=== PATIENT | female | born 1965 | race Caucasian/White ===

== ENCOUNTER → 2020-06-13 17:41 | Outpatient (CLI) | payer OTHER, SELFPAY ==
--- NOTE | ~2020-06-13 | DEXA_ITS ---
Bone Density Report Name: Christi Mckinnon Age: 54 Sex: Female Ethnicity: White Date of : 1965 Indication: monitoring treatment; cancer; postmenopausal Referring Provider: MIRIAM, CRISTINE Study: Bone densitometry was performed. Exam Date: June 13, 2020 Accession number: [id number] Bone Density: Region BMD T-score Z-score Classification AP Spine (L1-L4) 1.420 3.4 4.6 Normal Femoral Neck (Left) 1.018 1.5 2.7 Normal Total Hip (Left) 1.275 2.7 3.5 Normal Femoral Neck (Right) 0.936 0.8 1.9 Normal Total Hip (Right) 1.154 1.7 2.5 Normal Total Hip Mean 1.215 2.2 3.0 Normal World Health Organization criteria for BMD impression classify patients as: Normal (T-score at or above -1.0), Osteopenia (T-score between -1.0 and -2.5), or Osteoporosis (T-score at or below -2.5). 10-year Fracture Risk: FRAX not reported because: All T-scores for Spine Total, Hip Total, Femoral Neck at or above -1.0 Treated for osteoporosis Previous Exams: Region Exam Age BMD T-score BMD Change BMD Change Date g/cm2 vs Baseline vs Previous AP Spine(L1-L4) 06/13/2020 54 1.420 3.4 0.144* 0.144* 02/08/2016 50 1.276 2.1 Total Hip(Left) 06/13/2020 54 1.275 2.7 0.047* 0.047* 02/08/2016 50 1.228 2.3 Total Hip(Right) 06/13/2020 54 1.154 1.7 0.004 0.004 02/08/2016 50 1.149 1.7 *Denotes significance at 95% confidence level, LSC for AP Spine = 0.022 g/cm2, LSC for Total Hip = 0.027 g/cm2 Clinical Information Provided by Patient: Is being treated for osteoporosis Has used the following medications: Vitamin D, Calcium, MTV, TAMOXIFEN Has the following medical conditions: Cancer Patient maximum height was 70.0 Menopause Age: 49 Drinks caffeinated beverages Onset of menses at age 12 Number of children 2 Impression: The patient has normal bone mass. No significant bone loss was observed. Discussion: PATIENT UNDER TREATMENT WITH NO SIGNIFICANT BMD LOSS SINCE LAST EXAM. In an untreated patient, BMD typically declines with age. A lack of decline or gain is usually a sign that treatment is efficacious and fracture risk is reduced. It is important to ask patients whether they are taking their medications and to encourage continued and appropriate compliance with their osteoporosis therapies to reduce fracture risk. It is also important to review their risk factors and encourage appropriate calci
== END ==
PROVIDERS: Visit Provider Nurse Practitioner
DX: Z78.0 Asymptomatic menopausal state (principal)
CPT/HCPCS: 77080

== ENCOUNTER 2023-02-07 09:10 | Outpatient (CLI) | payer OTHER, SELFPAY ==
[2023-02-07 09:43] LABS: Anion Gap 7 mmol/L (8-16); Blood Urea Nitrogen 18 mg/dL (7-17); Calcium 8.8 mg/dL (8.4-10.2); Carbon Dioxide 27 mmol/L (22-30); Chloride 107 mmol/L (98-107); Estimated Glomerular Filt Rate 57; Glucose 120 mg/dL (65-110); Potassium 4.6 mmol/L (3.4-5.0); Sodium 141 mmol/L (137-145)
== END 2023-02-07 09:11 | disposition home or self-care (01) ==
PROVIDERS: Anesthesiology; PCP Family Medicine; Visit Provider Obstetrics & Gynecology Gynecology
DX: E11.9 Type 2 diabetes mellitus without complications (principal); Z01.818 Encounter for other preprocedural examination
CPT/HCPCS: 36415; 80048

== ENCOUNTER 2023-02-11 01:27 | Day surgery (SDC) | payer OTHER, SELFPAY ==
[2023-02-06 15:06] VITALS: BMI 41.0
--- NOTE | 2023-02-06 15:12 | PC.NURSE ---
Report to the Outpatient Waiting Room, entrance under the green pavilion located off [facility], at time 6:00 on date 02/11/23. Planned Procedure Time: 7:30. Time changes happen often and if your time is changed the preop area will call you the afternoon before. - You and your visitor will be asked to self-screen and do not enter if you have any COVID symptoms. - A mask is optional within the hospital at this time. Patients may have clear liquids (water, carbonated beverages, clear teas, apple juice) until 3 hours prior to surgery (4:30) with a maximum of 20 ounces. - No food from midnight until time of surgery Take the following medications with a SIP of water the morning of surgery: CITALOPRAM DO NOT STOP ANY OF YOUR OTHER PRESCRIPTION MEDICATIONS PRIOR TO SURGERY ?EXCEPT THE FOLLOWING Medications to discontinue per physician: VITAMINS Date to take last dose: 02/07/23 Please no make-up, nail amharic, hairspray, perfume, deodorant, or body powder the day of surgery. No jewelry (including any body piercings) or valuables the day of surgery, leave them at home. Please take a shower or bath the night before, or the morning of, surgery with an antibacterial soap. Wear comfortable, loose fitting clothing. - Jewelry must be removed prior to entering the operating room. Rings and piercings that are not removed may be cut off. - The hospital will not accept responsibility for valuables. - Please leave all valuables, including medications, at home the day of surgery. If you are going home after surgery, a licensed furniture mover driver must drive you home. - NO public transportation without another adult if you receive anesthesia. - We recommend that an adult stay with you for 24 hours following discharge. - We also recommend that you do not drive, make important decision, drink alcoholic beverages, or take any drugs that were not prescribed by your health care provider for at least 24 hours after your discharge time. Follow any additional instructions given to you from your surgeon. If you or anyone in your household have experienced Covid symptoms in the past week, please notify your surgeon or the nurse liaison at the phone number below for possible testing. Telephone instructions given to PT - ROSASNA THOMAS and asked if any additional questions and then verbalized understanding. Patient advised to call surgeon office or pre surgery nurse liaison [phone] if any additional questions.
[2023-02-11 06:26] VITALS: BP 145/80; PULSE 64; RESP 18; TEMP 36.8; O2SAT 97
--- NOTE | 2023-02-11 06:39 | WPDANESEPPF ---
Anes - Initial Pre Proc Eval Procedure: Operation Date: 02/11/23 07:30 Proposed Procedures p Hysteroscopy Dilation and Curettage - Jada Churchill MD Date/Time: 02/11/23 06:39 Surgeon: Jada Churchill MD Pre Op Diagnosis: post menopausal bleeding Patient Data Age: 57 Gender: F Height: 1.78 m Weight: 131.4 kg Last Vital Signs Temp 36.8 C 02/11/23 06:26 Pulse 64 02/11/23 06:26 Resp 18 02/11/23 06:26 BP 145/80 H 02/11/23 06:26 Pulse Ox 97 02/11/23 06:26 O2 Del Method Room Air 02/11/23 06:26 Allergies Allergy/AdvReac Type Severity Reaction Status Date / Time No Known Allergies Allergy Mild Unverified 02/06/23 15:04 Home Medications Medication Instructions Recorded Confirmed Type ramipril 10 mg capsule See Rx Instructions .Route 07/20/19 02/06/23 Rx .COMPLEX #90 caps citalopram 20 mg tablet 10 mg PO DAILY 02/06/23 02/06/23 History metformin 500 mg tablet,extended 1,000 mg PO DAILY 02/06/23 02/06/23 History release 24 hr multivitamin 1 tablet PO DAILY 02/06/23 02/06/23 History tamoxifen 10 mg tablet 30 mg PO DAILY 02/06/23 02/06/23 History Patient hx anesthesia problems: none Family hx anesthesia problems: none Results Review: All pre-operative results and documents have been reviewed as part of the pre-operative evaluation. [facility] Past Medical History Medical History (Updated 02/11/23 @ 06:39 by Xavier Pack MD) Diabetes HTN (hypertension) Morbid obesity Surgical History Surgical History (Updated 02/11/23 @ 06:40 by Xavier Pack MD) H/O colonoscopy History of appendectomy Family History Family History (Updated 01/12/16 @ 08:09 by DOCTOR UNKNOWN) Father Family history of multiple sclerosis Mother Hypertension Grandparent Malignant neoplasm of prostate Family history of coronary artery disease Other Family history of malignant neoplasm Social History Social History Smoking status: Never smoker Alcohol intake: current Drinks per week: 2 Substance use: never Substance use type: does not use Living arrangements: with family Spiritual care concerns: No Anes - Eval Final PreProcedure Day of Procedure 02/11/23 06:39 Patient weight: morbidly obese Heart: regular rate and rhythm Lungs: clear to auscultation Airway: Mallampati scale class II Neurological: alert and oriented Last oral intake: >/= 8 hours ASA classification: III Emergent: no Anesthetic plan: proceed Anesthesia type and monitoring: general GIVS and standard monitoring Results Review: All pre-operative results and documents have been reviewed as part of the pre-operative evaluation. Informed Consent: The patient's anesthetic plan and its attendant risks and benefits were discussed with the patient/family/POA. Questions were solicited and answers provided to the satisfaction of the patient/family/POA.
[2023-02-11] MEDS: LACTATED RINGERS 1,000 ML 30 ML IV CONT (06:47)
[2023-02-11] MEDS: ACETAMINOPHEN 500 MG TABLET 1000 MG PO (06:47)
[2023-02-11 06:49] LABS: Glucose Point of Care 138 mg/dl (65-105)
--- NOTE | 2023-02-11 07:23 | WPDHPUPDATE1 ---
History and Physical Update Update Date/Time: 02/11/23 07:23 History and Physical has been reviewed, including an updated exam of the patient. There are NO changes in the patient's condition. Risks, benefits, and alternatives have been discussed and questions answered. Patient agrees to proceed with procedure.
--- NOTE | 2023-02-11 07:23 | PM.HPGS ---
History of Present Illness History of Present Illness Consent: Risks, benefits, and alternatives have been discussed and questions answered. Patient agrees to proceed with procedure. Chief complaint: post menopausal bleeding Narrative: Christi Mckinnon is a 57 year old female Who presented for her well-woman exam January 23, 2023 with no complaints. Pap smear however showed endometrial cells present. Patient is on tamoxifen and therefore she presents for D&C hysteroscopy to further evaluate. Risks of infection, bleeding, and perforation are reviewed. Possible pathology was also discussed especially being on tamoxifen. Patient voices understanding and agrees to proceed. 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 Family History Family History (Updated 01/12/16 @ 08:09 by DOCTOR UNKNOWN) Father Family history of multiple sclerosis Mother Hypertension Grandparent Malignant neoplasm of prostate Family history of coronary artery disease Other Family history of malignant neoplasm Social History Social History Smoking status: Never smoker Alcohol intake: current Drinks per week: 2 Substance use: never Substance use type: does not use Living arrangements: with family Spiritual care concerns: No Meds Home Medications and Allergies Home Medications Medication Instructions Recorded Confirmed Type ramipril 10 mg capsule See Rx Instructions .Route 07/20/19 02/11/23 Rx .COMPLEX #90 caps citalopram 20 mg tablet 10 mg PO DAILY 02/06/23 02/11/23 History metformin 500 mg tablet,extended 1,000 mg PO DAILY 02/06/23 02/11/23 History release 24 hr multivitamin 1 tablet PO DAILY 02/06/23 02/11/23 History tamoxifen 10 mg tablet 30 mg PO DAILY 02/06/23 02/11/23 History Allergies Allergy/AdvReac Type Severity Reaction Status Date / Time No Known Allergies Allergy Mild Unverified 02/11/23 07:13 Vital Signs Vital Signs - 24 hr 02/11/23 06:26 Temperature 98.2 F Pulse Rate 64 Respiratory Rate 18 Blood Pressure 145/80 H Pulse Oximetry 97 Oxygen Delivery Room Air Exam Const: General: healthy appearing and alert Orientation/consciousness: patient oriented x3 Resp: Effort & Inspection: normal respiratory effort Auscultation: clear to auscultation bilaterally Cardio: Rate: regular rate Rhythm: regular rhythm GI: GI Palp: Yes Soft to palpation, No Tenderness to palpation present (GI) and No Palpable mass present : External Female Exam: normal external appearance Speculum Exam - Vagina: normal appearance of the vagina and normal vaginal discharge Speculum Exam - Cervix: normal appearance of the cervix Bimanual exam- vagina & uterus: uterine size normal and consistency normal Bimanual Exam- Adnexa, other: normal adnexae and No adnexal tenderness Neuro: General: patient oriented x3 Assessment and Plan Assessment and plan (1) Unexplained endometrial cells on cervical Pap smear: Code(s): R87.618 - Other abnormal cytological findings on specimens from cervix uteri Status: Acute Assessment and Plan: The patient is postmenopausal and on tamoxifen therefore we will proceed with D&C hysteroscopy to further evaluate.
--- NOTE | 2023-02-11 07:51 | P.OP_ITS ---
Procedure Note - Detailed Date of Procedure 02/11/23 Pre-op Diagnosis microscopic post menopausal bleeding; endometrial cells on Pap smear Post-op Diagnosis Same Procedure Performed D&C hysteroscopy Surgeon Jada Churchill MD Anesthesia MAC Findings very anterior cavity; atrophic endometrium Description of Procedure The patient is taken to the operating room and placed under anesthesia in the dorsal lithotomy position. She was prepped and draped in the usual sterile fashion. [place] speculum was placed in the vagina and cervix grasped on the anterior lip with a tenaculum. The uterus was attempted to be sounded but internal stenosis is noted. The os Finders were used and the internal os able to be passed. The uterus is then sounded to 8cm. The diagnostic hysteroscope was placed and the cavity is noted to be very anterior. The speculum had to be rotated to allow the hysteroscope to be placed very posteriorly aiming for the very anterior endometrial cavity. No abnormalities were visualized and the hysteroscope was removed. The 00 sharp curette was placed through the same pathway and the endometrium sharply curetted until a good uterine cry was noted in all areas. All instruments are removed. Sponge, needle, and instrument c ounts are correct per the OR staff. Estimated Blood Loss 5 Drains No Packing No Pathology Yes ( Endometrial curettings) Complications No immediate complications Condition Stable Disposition PACU
[2023-02-11 07:57] VITALS: BP 107/62; PULSE 52; RESP 12; O2SAT 96
[2023-02-11 08:12] LABS: Glucose Point of Care 133 mg/dl (65-105)
[2023-02-11 08:25] VITALS: BP 131/75; PULSE 43; RESP 14; O2SAT 98
[2023-02-11 08:50] VITALS: BP 113/60; PULSE 52; RESP 14
== END 2023-02-11 08:58 | disposition home or self-care (01) ==
PROVIDERS: PCP Family Medicine; Visit Provider Obstetrics & Gynecology Gynecology
PROC: 0U5B8ZZ Destruction of Endometrium, Via Natural or Artificial Opening Endoscopic (ICD-10-PCS; CPT 58563; principal; 2023-02-11 07:30)
DX: N95.0 Postmenopausal bleeding (principal); E11.9 Type 2 diabetes mellitus without complications; I10 Essential (primary) hypertension; E66.9 Obesity, unspecified; Z68.41 Body mass index [BMI] 40.0-44.9, adult; Z90.11 Acquired absence of right breast and nipple; Z79.84 Long term (current) use of oral hypoglycemic drugs; Z79.810 Long term (current) use of selective estrogen receptor modulators (SERMs); Z85.3 Personal history of malignant neoplasm of breast; Z82.49 Family history of ischemic heart disease and other diseases of the circulatory system; Z80.42 Family history of malignant neoplasm of prostate
CPT/HCPCS: 58558; 36415; 80048; 82948; 88305; A9270; J2250; J2405; J2704; J3010; J7120

== ENCOUNTER 2024-03-20 08:18 | Emergency (ER) | payer OTHER, SELFPAY ==
--- NOTE | ~2024-03-20 | XR_ITS ---
EXAMINATION: XR chest 2V DATE: 03/20/2024 08:55 INDICATION: Shortness of breath. TECHNIQUE: Frontal and lateral views of the chest were obtained. COMPARISON: Chest single view 09/23/2005 FINDINGS: There is no pneumonia, pleural effusion, or pneumothorax. The heart size is normal. There a re prominent pericardial fat pads. IMPRESSION: 1. No acute cardiopulmonary disease. Reviewed, dictated and finalized at location A. BOARD SUPERVISOR
[2024-03-20 08:34] VITALS: BP 124/69; PULSE 89; RESP 16; TEMP 37.5; O2SAT 98
--- NOTE | 2024-03-20 08:37 | ED.GENADULT ---
HPI - General Adult General Chief complaint: Upper Respiratory Infection Stated complaint: dizziness, nausea, sob Time Seen by Provider: 03/20/24 08:37 Source: patient Mode of arrival: ambulatory Limitations: no limitations History of Present Illness HPI narrative: 58 yo F presents with c/o intermittent dizziness, fatigue, nausea, vomiting since yesterday. Vomited once last night. Was able to keep down crackers and medications this AM. Hx of breast CA. Currently getting radiation treatments. After radiation tx yesterday pt felt dizzy and nauseated. Was told side effect of radiation. Today feels fatigued. Has a very slight cough and gets SOB with talking to much . Called oncology office and was told could be due to radiation but to be seen, could be getting sick. Pt dizzy when sitting up. States tired and just want to lay my head down . Alert and oriented. Has not taken any medication to treat symptoms. Pt's drove her today. No CP or palpitations. All systems reviewed and negative except as noted above. Related Data Home Medications ?Medication ?Instructions ?Recorded ?Confirmed ?Last Taken ?Type citalopram 20 mg tablet 10 mg PO DAILY 02/06/23 02/11/23 Unknown History metformin 500 mg tablet,extended 1,000 mg PO DAILY 02/06/23 02/11/23 Unknown History release 24 hr multivitamin 1 tablet PO DAILY 02/06/23 02/11/23 Unknown History tamoxifen 10 mg tablet 30 mg PO DAILY 02/06/23 02/11/23 Unknown History Allergies Allergy/AdvReac Type Severity Reaction Status Date / Time No Known Allergies Allergy Mild Verified 03/20/24 08:26 Review of Systems Review of Systems: CONSTITUTIONAL: Denies fever, chills, or sweats. Reports fatigue. EYES: Denies visual changes, redness, or discharge. ENT: Denies rhinorrhea, congestion, sore throat, or otalgia. CARDIOVASCULAR: Denies chest pain, palpitations, or edema. RESPIRATORY: Reports cough and dyspnea with talking. GASTROINTESTINAL: Denies abdominal pain. Reports nausea, vomiting. Denies diarrhea. GENITOURINARY: Denies dysuria or hematuria. SKIN: Denies rash or itching. MUSCULOSKELETAL: Denies back pain, joint pain, or myalgia. NEUROLOGIC: Denies headache, numbness, or weakness. PSYCHIATRIC: Denies anxiety or depression. All other systems reviewed are negative, except as documented in HPI. 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 History of appendectomy H/O colonoscopy Family History Family History (Updated 01/12/16 @ 08:09 by DOCTOR UNKNOWN) Father Family history of multiple sclerosis Mother Hypertension Grandparent Malignant neoplasm of prostate Family history of coronary artery disease Other Family history of malignant neoplasm Social History Social History Smoking status: Never smoker Alcohol intake: current Drinks per week: 2 Substance use: never Substance use type: does not use Living arrangements: with family Spiritual care concerns: No Comments At time of signature, agree with nursing past medical, surgical, social and family history. There is no relevant family history pertinent to the presenting complaint. Exam Narrative: GENERAL: This is a well-nourished, well-developed patient, in no apparent distress. HEAD: normocephalic, atraumatic. EYES: PERRL. Sclera clear/white. Vision is grossly intact. extraocular motions intact EARS: External ears normal, auditory canals clear and without drainage, TMs normal without perforation. Hearing grossly intact. NOSE: External nose normal with no obvious nasal discharge, nares without redness, no rhinorrhea. THROAT: Mucous membranes moist, posterior pharynx clear. NECK: Neck supple, non-tender without lymphadenopathy, masses or thyromegaly. CARDIOVASCULAR: Regular rate and rhythm without murmurs, gallops, or rubs. RESPIRATORY: Clear to auscultation. Breath sounds equal bilaterally. No wheezes, rales, or rhonchi. GASTROINTESTINAL: Abdomen soft, non-tender, nondistended. Bowel sounds are active. No hepato-splenomegaly, or palpable masses. No guarding. SKIN: warm, Dry, intact with no suspicious lesions or rash, good texture and turgor. NEURO: awake, alert, and oriented to person, place and time. There were no obvious focal neurologic abnormalities. EXTREMITIES: No joint tenderness, effusion, or edema noted. Course Course Level of Care: Express Care Visit Vital Signs Vital signs: Vital Signs Temperature 37.5 C 03/20/24 08:34 Pulse Rate 89 03/20/24 08:34 Respiratory Rate 16 03/20/24 08:34 Blood Pressure 124/69 03/20/24 08:34 Pulse Oximetry 98 03/20/24 08:34 Oxygen Delivery Room Air 03/20/24 08:34 Temperature 37.5 C 03/20/24 08:34 Pulse Rate 89 03/20/24 08:34 Respiratory Rate 16 03/20/24 08:34 Blood Pressure 124/69 03/20/24 08:34 Pulse Oximetry 98 03/20/24 08:34 Oxygen Delivery Room Air 03/20/24 08:34 reviewed Medical Decision Making MDM Narrative Medical decision making narrative: EKG NSR, HR 82, no ischemic changes. neg covid and influenza. chest x-ray normal. EKG NSR. Pt spoke with her oncology team and was told symptoms most likely from radiation but to be seen in case something else going on. Did offer to transfer pt to ER for labs. She did not feel was necessary. Here with her and wants to go home and rest. Will call her oncologist with update and will go to the ER for any worsening of symptoms. Patient is aware of diagnosis, understands and agrees to treatment plan. Anticipatory guidance given. Patient agrees to follow-up as directed and is aware of reasons to seek care at the emergency department. Portions of this record may have been created with voice recognition software Differential Diagnosis Differential Diagnosis: radiation side effects, influenza, COVID Vital Signs Vital Signs: Vital Signs Temperature 37.5 C 03/20/24 08:34 Pulse Rate 89 03/20/24 08:34 Respiratory Rate 16 03/20/24 08:34 Blood Pressure 124/69 03/20/24 08:34 Pulse Oximetry 98 03/20/24 08:34 Oxygen Delivery Room Air 03/20/24 08:34 Temperature 37.5 C 03/20/24 08:34 Pulse Rate 89 03/20/24 08:34 Respiratory Rate 16 03/20/24 08:34 Blood Pressure 124/69 03/20/24 08:34 Pulse Oximetry 98 03/20/24 08:34 Oxygen Delivery Room Air 03/20/24 08:34 Lab Data Labs: Lab Results 03/20/24 Range/Units 08:55 POC Influenza A Ag Negative (Negative) POC Influenza B Ag Negative (Negative) POC SARS CoV-2 Ag Negative (Negative) Imaging Data Radiologist's impression: EXAMINATION: XR chest 2V DATE: 03/20/2024 08:55 INDICATION: Shortness of breath. TECHNIQUE: Frontal and lateral views of the chest were obtained. COMPARISON: Chest single view 09/23/2005 FINDINGS: There is no pneumonia, pleural effusion, or pneumothorax. The heart size is normal. There are prominent pericardial fat pads. IMPRESSION: 1. No acute cardiopulmonary disease. Discharge Plan Discharge Clinical Impression: Acute viral syndrome Adverse effect of radiation Qualifiers: Encounter type: initial encounter Qualified Code(s): T66.XXXA - Radiation sickness, unspecified, initial encounter Patient Disposition: Home, Self-Care Condition: Stable Additional Instructions: You were negative for covid and influenza. Your chest x-ray was normal. Your EKG was normal. Take medications as prescribed. Drink at least 64 ounces of water a day. For any worsening of symptoms go to the ER. Patient Language: Upper Sorbian Prescriptions: New meclizine 25 mg tablet 25 mg PO Q6-8H PRN (Reason: dizziness) Qty: 30 0RF ondansetron 4 mg tablet,disintegrating 4 mg PO Q8H PRN (Reason: nausea and vomiting) Qty: 12 0RF No Action multivitamin Tablet 1 tablet PO DAILY tamoxifen 10 mg tablet 30 mg PO DAILY metformin 500 mg tablet extended release 24 hr 1,000 mg PO DAILY citalopram 20 mg tablet 10 mg PO DAILY ramipril 10 mg capsule See Rx Instructions .ROUTE .COMPLEX Qty: 90 0RF Dose Instruction: TAKE 1 CAPSULE BY MOUTH EVERY DAY Rx Instructions: TAKE 1 CAPSULE BY MOUTH EVERY DAY Follow-up/Referrals: Willy,Virgilio Trinh MD [Primary Care Provider] - Time of Disposition: 09:05
[2024-03-20 08:57] LABS: EDCOVIDSCREEN Negative (Negative); EDINFLUASCREEN Negative (Negative); EDINFLUBSCREEN Negative (Negative)
--- NOTE | 2024-03-20 09:07 | ECG_ITS ---
Test Date: 2024-03-20 09:13:06 Measurements Intervals [place] Rate: 82 P: 31 VT: 141 QRS: -15 QRSD: 96 T: 8 QT: 351 QTc: 410 Interpretive Statements SINUS RHYTHM NORMAL ECG No previous ECG available for comparison Electronically Signed On 03-21-2024 10:25:00 GARMENT PARTS CUTTER MACHINE by Angelo Hawk M.D.
== END 2024-03-20 09:13 | disposition home or self-care (01) ==
PROVIDERS: Emergency Provider Nurse Practitioner Family; PCP Family Medicine
DX: B34.9 Viral infection, unspecified (principal); T66.XXXA Radiation sickness, unspecified, initial encounter; C50.919 Malignant neoplasm of unspecified site of unspecified female breast; E11.9 Type 2 diabetes mellitus without complications; I10 Essential (primary) hypertension; Z20.822 Contact with and (suspected) exposure to COVID-19
CPT/HCPCS: 71046; 87426; 87804; 93005; 99213; G0463

== ENCOUNTER 2024-04-29 13:47 | Outpatient (CLI) | payer OTHER, SELFPAY ==
--- NOTE | ~2024-04-29 | DEXA_ITS ---
Bone Density Report Name: ROSSANA THOMAS Age: 58 Sex: Female Ethnicity: White Date of : 1965 Indication: postmenopausal; screening for osteoporosis; height loss; Referring Provider: TAB, ELLI Trinh Study: Bone densitometry was performed. Exam Date: April 29, 2024 Accession number: [id number] Bone Density: Region BMD T-score Z-score Classification AP Spine(L1-L4) 1.365 2.9 4.4 Normal Femoral Neck (Left) 1.082 2.1 3.4 Normal Total Hip (Left) 1.313 3.0 4.0 Normal Femoral Neck (Right) 1.003 1.4 2.7 Normal Total Hip (Right) 1.205 2.2 3.1 Normal Total Hip Mean 1.259 2.6 3.6 Normal World Health Organization criteria for BMD impression classify patients as: Normal (T-score at or above -1.0), Osteopenia (T-score between -1.0 and -2.5), or Osteoporosis (T-score at or below -2.5). 10-year Fracture Risk: FRAX not reported because: All T-scores for Spine Total, Hip Total, Femoral Neck at or above -1.0 Clinical Information Provided by Patient: Has used the following medications: Vitamin D, Calcium Patient maximum height was 72.0 Menopause Age: 48 Onset of menses at age 11 Number of children 2 Impression: The patient has normal bone mass. Discussion: LOW RISK OF FRACTURE; BONE DENSITY IS WELL ABOVE THE MINIMUM DESIRABLE LEVEL AND ABOVE AVERAGE FOR AGE AND SEX AT ALL SKELETAL SITES TESTED. This person's bone density is above expected limits for age and sex. This is rarely clinically significant, but should be pursued if there are significant musculoskeletal complaints. The patient should follow a healthful lifestyle (good nutrition with adequate calcium and vitamin D, and appropriate weight-bearing exercise). Follow-Up: Consider repeating this study in 5 years or sooner if there is some new clinical indication. Reported by: MARITA on 04/29/2024 2:32:00 PM. Reviewed, dictated and finalized at location AMarisa DIAZ
--- OUTSIDE RECORDS SUMMARY | 2024-04-29 13:51 | XMS_ITS | Clinical Summary ---
Author Organization [facility] Address [address] [place] [id number] Care Team Providers Care Band Splicer Name Role Phone Unavailable Primary Care Provider Unavailabl e Social History Tobacco Use Types Packs/Day Years Used Date Smoking Tobacco: Never Assessed Comments Unknown Sex and Gender Information Value Date Recorded Sex Assigned at Not on file Legal Sex Female 6:13 PM CDT Gender Identity Not on file Sexual Orientation Not on file Plan of Treatment Health Maintenance Due Date Last Done Comments Cervical Cancer Screening Pa p Smear (Age 30 to 64) Every 3 Years 1965 Colorectal Cancer Screening Colonoscopy (10 Years) 1965 Annual Physical 08/12/1966 Hepatitis C 08/12/1981 DTaP, Tdap and Td Vaccines ( 1 - Tdap) 08/12/1982 Cervical Cancer Screening Pa p with HPV Testing (Age 30 to 64) Every 5 Years 08/12/1993 Cervical Cancer Screening with HPV 08/12/1993 Mammogram Screening 2003 Zoster Vaccines (1 of 2) 08/12/2013 COVID-19 Vaccine (2023-2 5 season) 2023 Influenza Adult (#1) 2023 RSV Immunization or 60+ Years (1 - 1-dose 75+ series) 08/12/2038 Meningococcal B Vaccine Aged Out No l onger eligible based on patient's age to complete this topic Meningococcal Vaccine Aged Out No kassy umm eligible based on patient's age to complete this topic Pneumococcal Vaccine: Pediat rics (0 to 5 Years) and At-Risk Patients (6 to 64 Years) Aged Out No longer eligible b ased on patient's age to complete this topic RSV Immunizations Under 20 Months Aged Out No longer eligible based on patient's age to complete this topic
--- OUTSIDE RECORDS SUMMARY | 2024-04-29 13:52 | XMS_ITS | Referral Summary ---
Author Organization [facility] Address [address] [place] [address] Care Team Providers Care Education Site Manager Name Role Phone Virgilio Aguilera MD Primary Care Provider + Chi Lewis DO Unavailable [phone] Teetee Burch RISK CONTROL ANALYST Unavailable +- [phone] Gavino, Larissa De Jesus MD PhD Unavailable [phone] Ene Telles MD Unavailable [phone] Jasmine Aguirre MD PhD Unavailable [phone] Encounters Date Type Department Care Team Description 04/15/[address] [facility] Office Building 2 Radiation Oncology [address] [place] [address] [id number] Ene Telles MD 04/15/2024 Orders Only RAD ONC TREATMENTS Miscellaneous, Not In File 04/15/[address] [facility] Office Building 2 Radiation Oncology [address] [place] [address] [id number] Ene Telles MD Malignant neoplasm of upper-outer quadrant of right breast in female, estrogen receptor positive (HCC) (Primary Dx) 04/15/2024 Orders Only RAD ONC TREATMENTS Miscellaneous, Not In File 04/15/2024 8:00 AM [facility] Office Building 2 Radiation Oncology [address] [place] [address] [id number] Ene Telles MD 04/14/2024 Orders Only RAD ONC TREATMENTS Miscellaneous, Not In File 04/14/2024 8:00 AM [facility] Office Building 2 Radiation Oncology [address] [place] [address] [id number] 04/13/2024 Orders Only RAD ONC TREATMENTS Miscellaneous, Not In File 04/13/2024 8:00 AM [facility] Office Building 2 Radiation Oncology [address] [place] [address] [phone] 04/10/2024 Orders Only RAD ONC TREATMENTS Miscellaneous, Not In File 04/10/2024 8:00 AM [facility] Office Building 2 Radiation Oncology [address] [place] [address] [id number] 04/09/2024 Orders Only RAD ONC TREATMENTS Miscellaneous, Not In File 04/09/2024 8:00 AM [facility] Office Building 2 Radiation Oncology [address] [place] [address] [id number] 04/08/2024 Orders Only RAD ONC TREATMENTS Miscellaneous, Not In File 04/08/2024 8:00 AM [facility] Office Building 2 Radiation Oncology [address] [place] [address] [id number] Fer Napier MD 04/08/2024 8:15 AM [facility] Office Building 2 Radiation Oncology [address] [place] [address] [id number] Ene Telles MD 04/08/2024 2:15 PM [employer] Office Visit [facility] Oncology [address] [place] [phone] Chi Lewis, Malignant neoplasm of upper-outer quadrant of right breast in female, estrogen receptor positive (HCC) (Primary Dx); Vitamin D deficiency; long-term (current) use of aromatase inhibitors 04/07/2024 [facility] Office Building 2 Radiation Oncology [address] [place] [address] [id number] Ene Telles MD Malignant neoplasm of upper-outer quadrant of right breast in female, estrogen receptor positive (HCC) (Primary Dx) 04/07/2024 Orders Only RAD ONC TREATMENTS Miscellaneous, Not In File 04/07/2024 8:30 AM [facility] Office [facility] 2 Radiation Oncology [address] [place] [id number] 04/06/2024 Orders Only RAD ONC TREATMENTS Miscellaneous, Not In File 04/06/2024 8:00 AM [facility] Office [facility] 2 Radiation Oncology [address] [place] [address] [phone] 04/03/2024 Orders Only RAD ONC TREATMENTS Miscellaneous, Not In File 04/03/2024 8:15 AM [facility] Office [facility] 2 Radiation Oncology [address] [place] [id number] Ene Telles MD 04/03/2024 8:00 AM [facility] 2 Radiation Oncology [address] [place] [address] [phone] 04/02/2024 Orders Only RAD ONC TREATMENTS Miscellaneous, Not In File 04/02/2024 8:00 AM [facility] Office [facility] 2 Radiation Oncology [address] [place] [address] [id number] 04/01/2024 2:30 PM [employer] Office Visit [facility] Surgery 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) 04/01/2024 [facility] Office [facility] 2 Radiation Oncology [address] [place] [address] [id number] Ene Telles MD Malignant neoplasm of upper-outer quadrant of right breast in female, estrogen receptor positive (HCC) (Primary Dx) 04/01/2024 Orders Only RAD ONC TREATMENTS Miscellaneous, Not In File 04/01/2024 8:00 AM [facility] Office Building 2 Radiation Oncology [address] [place] [address] [id number] 03/31/2024 Orders Only RAD ONC TREATMENTS Miscellaneous, Not In File 03/31/2024 8:00 AM [facility] Office Building 2 Radiation Oncology [address] [place] [address] [id number] 03/30/2024 Orders Only RAD ONC TREATMENTS Miscellaneous, Not In File 03/30/2024 8:00 AM [facility] Office Building 2 Radiation Oncology [address] [place] [address] [phone] 03/27/2024 Orders Only RAD ONC TREATMENTS Miscellaneous, Not In File 03/27/2024 8:00 AM [facility] Office Building 2 Radiation Oncology [address] [place] [address] [phone] 03/26/2024 Orders Only RAD ONC TREATMENTS Miscellaneous, Not In File 03/26/2024 8:00 AM [facility] Office Building 2 Radiation Oncology [address] [place] [address] [phone] 03/25/2024 Orders Only RAD ONC TREATMENTS Miscellaneous, Not In File 03/25/2024 8:00 AM [facility] Office Building 2 Radiation Oncology [address] [place] [address] [id number] 03/24/2024 3:[address] [facility] Medical Office Building [address] [place] [id number] Shortness of breath 03/24/2024 2:41 PM [employer] - 03/24/2024 11:59 PM [facility] 1 DIAG IMG [address] [place] [address] [id number] Shortness of breath Discharge Disposition: Discharge to home or self care 03/24/2024 2:30 PM [employer] Office Visit [facility] Primary Care [address] [place], [place] [address], [place] [address] Virgilio Aguilera MD Shortness of breath (Primary Dx); Essential hypertension; JACKIE (generalized anxiety disorder); Moderate episode of recurrent major depressive disorder (HCC); Class 3 severe obesity due to excess calories without serious comorbidity with body mass index (BMI) of 40.0 to 44.9 in adult (HCC) 03/24/2024 Nurse Triage [facility] Primary Care [address] [place] [address] [address] [place] [address] Virgilio Aguilera MD 03/24/2024 [facility] Office Building 2 Radiation Oncology [address] [place] [address] [phone] Xavier Corbett MD 03/24/2024 Orders Only RAD ONC TREATMENTS Miscellaneous, Not In File 03/24/2024 8:00 AM [facility] Office Building 2 Radiation Oncology [address] [place] [address] [phone] 03/23/2024 Orders Only RAD ONC TREATMENTS Miscellaneous, Not In File 03/23/2024 8:00 AM [facility] Office Building 2 Radiation Oncology [address] [place] [address] [phone] 03/20/2024 [facility] Office Building 2 Radiation Oncology [address] [place] [address] [phone] Teetee Pathak MA 03/19/2024 Orders Only RAD ONC TREATMENTS Miscellaneous, Not In File 03/19/2024 8:00 AM [facility] Office Building 2 Radiation Oncology [address] [place] [address] [id number] 03/18/2024 [facility] Office Building 2 Radiation Oncology [address] [place] [address] [id number] Ene Telles MD Malignant neoplasm of upper-outer quadrant of right breast in female, estrogen receptor positive (HCC) (Primary Dx) 03/18/2024 Orders Only RAD ONC TREATMENTS Miscellaneous, Not In File 03/18/2024 8:00 AM [employer] Treatment [facility] Office [facility] 2 Radiation Oncology [address] [place] [address] [id number] 03/17/2024 Orders Only RAD ONC TREATMENTS Miscellaneous, Not In File 03/17/2024 10:30 AM [employer] Clinical Support [facility] Office Building 2 Radiation Oncology [address] [place] [address] [id number] Ductal carcinoma in situ (DCIS) of right breast (Primary Dx); Controlled type 2 diabetes mellitus without complication, without long-term current use of insulin (CMS/HCC) (HCC); Class 3 severe obesity due to excess calories without serious comorbidity with body mass index (BMI) of 40.0 to 44.9 in adult (HCC); Malignant neoplasm of upper-outer quadrant of right breast in female, estrogen receptor positive (HCC) 03/17/2024 10:15 AM [employer] Treatment [facility] Office [facility] 2 Radiation Oncology [address] [place] [address] [id number] Ene Telles MD 03/17/2024 10:30 AM [employer] Treatment [facility] Office [facility] 2 Radiation Oncology [address] [place] [address] [id number] Ene Telles MD 03/09/2024 7:30 PM [employer] Treatment [facility] Office [facility] 2 Radiation Oncology [address] [place] [address] [phone] 02/26/2024 2:30 PM [employer] Treatment [facility] Medical Office Building 2 Radiation Oncology [address] [place] [address] [id number] Ene Telles MD 02/26/2024 2:00 PM [employer] Office Visit [facility] Office [facility] 2 Radiation Oncology [address] [place] [address] [id number] Ene Telles MD Malignant neoplasm of upper-outer quadrant of right breast in female, estrogen receptor positive (HCC) (Primary Dx) 01/29/2024 3:00 PM [employer] Office Visit [facility] Surgery [address] [facility] [address] [place] [address] Aft, Larissa De Jesus MD PhD Malignant neoplasm of upper-outer quadrant of right breast in female, estrogen receptor positive (HCC) (Primary Dx) from Last 3 Months Allergies No known active allergies Medications multivitamin capsuleIndication s:Vitamin Deficiency Prevention Take 1 capsule by mouth powerhouse attendant before breakfast Active cyanocobalamin (Vitamin B-12) 100 mcg tabletIndications :Prevention of Vitamin B12 Deficiency Take 1 tablet (100 mcg total) by mouth powerhouse attendant before breakfast Active calcium-vits A0-U-I3-minerals 166.75 mg- 166.75 unit capsuleIndication s:supplement Take 1,200 mg by mouth every morning Active ferrous sulfate 325 mg (65 mg of elemental iron) tabletIndications :Iron Deficiency Anemia Take 1 tablet (325 mg total) by mouth daily with breakfast Active cholecalciferol (VITAMIN D-3) 2000 unit capsuleIndication s:Vitamin D Deficiency Take 1 capsule (2,000 Units total) by mouth every morning Active citalopram (CeleXA) 10 mg tabletIndications :JACKIE (generalized anxiety disorder) TAKE 1 TABLET(10 MG) BY MOUTH DAILY 90 tablet 3 09/10/19 24 Active ramipriL (ALTACE) 10 mg capsuleIndication s:Essential hypertension Take 1 capsule (10 mg total) by mouth daily 100 capsule 02/24/20 24 Active meclizine (ANTIVERT) 25 mg tablet Take 1 tablet (25 mg total) by mouth 3 (three) times a day as needed 03/20/19 25 Active ondansetron ODT (ZOFRAN-ODT) 4 mg disintegrating tablet Take 1 tablet (4 mg total) by mouth every 8 (eight) hours as needed 03/20/19 25 Active albuterol HFA (PROVENTIL HFA,VENTOLIN HFA,PROAIR HFA) 90 mcg/actuation inhalerIndication s:Shortness of breath Inhale 2 puffs every 6 (six) hours as needed for shortness of breath 1 each 4 03/24/19 25 026 Active anastrozole (ARIMIDEX) 1 mg tablet Take 1 tablet (1 mg total) by mouth daily 30 tablet 1 04/08/19 25 026 Active metFORMIN XR (GLUCOPHAGE XR) 500 mg 24 hr tabletIndications :Controlled type 2 diabetes mellitus without complication, without long-term current use of insulin ([facility]) ([facility]) Take 1 tablet (500 mg total) by mouth 2 (two) times a day 180 tablet 1 04/13/19 25 Active metFORMIN XR (GLUCOPHAGE XR) 500 mg 24 hr tabletIndications :Controlled type 2 diabetes mellitus without complication, without long-term current use of insulin ([facility]) ([facility]) TAKE 1 TABLET(500 MG) BY MOUTH DAILY WITH BREAKFAST FOR 7 DAYS THEN TAKE 2 TABLETS(1000 MG) BY MOUTH DAILY WITH BREAKFAST 180 tablet 1 10/16/19 24 025 Discontinued predniSONE (DELTASONE) 20 mg tabletIndications :Shortness of breath Take 3 tabs (60mg) daily for 3 days, then take 2 tabs (40mg) daily for 3 days, then take 1 tab (20mg) daily for 3 days. 18 tablet 03/24/19 25 025 Active Problems Problem Noted Date Diagnosed Date Shortness of breath 03/24/2024 Assessment & Plan (03/24/2024 3:14 PM [employer]): - unclear etiology - cxr, labs - possible viral or bacterial PNA vs other infection vs reactive airway - tx with steroid, albuterol, empiric abx due to high risk 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, estrogen receptor positive 12/24/2023 Cancer Staging:Clinical stage from 12/27/2023:Stage IA(cT1b, cN0, cM0, G2, ER+, AZ-, HER2-) - Signed by Ene Telles MD on 12/27/2023 Pathologic stage from 02/26/2024: rpT1b, pN0 - Unsigned Controlled type 2 diabetes m ellitus without complication, without long-term current use of insulin ([facility]/HCC) 01/09/2023 Assessment & Plan (01/22/2024 9:19 AM [employer]): - stable - continue metformin - discussed benefits of statins with DM, pt not interested at this time due to very low LDL Assessment & Plan (07/24/2023 9:05 AM CDT): - stable - continue metformin Assessment & Plan (01/09/2023 9:22 AM CDT): - stable - continue current medication - f/u in 6 mo History of partial mastectomy of right breast Post-COVID chronic cough 08/25/2021 Assessment & Plan (08/25/2021 10:18 AM CDT): - uncontrolled - may be some underlying COPD/Asthma exacerbated by covid infection - tx with albuterol and advair, medrol dose pack - consider PFTs once feelling better. - f/u in 1 mo if sx not improved or sooner if sx worsen. Annual physical exam 03/24/2021 Assessment & Plan (01/22/2024 9:19 AM [employer]): - Reviewed with the patient BMI, blood pressure, diet, exercise, and encouraged healthy lifestyle choices. - Screened for high risk behaviors, diet and exercise habits, and symptoms of depression. - reviewed screening labs - encouraged regular exercise and weight loss Assessment & Plan (09/10/2022 11:54 AM CDT): - Reviewed with the patient BMI, blood pressure, diet, exercise, and encouraged healthy lifestyle choices. - Screened for high risk behaviors, diet and exercise habits, and symptoms of depression. - check screening labs - encouraged regular exercise and weight loss Assessment & Plan (03/24/2021 7:55 AM [employer]): - Reviewed with the patient BMI, blood pressure, diet, exercise, and encouraged healthy lifestyle choices. - Screened for high risk behaviors, diet and exercise habits, and symptoms of depression. - check screening labs - encouraged regular exercise and weight loss Moderate episode of recurrent major depressive d isorder 06/21/2020 Assessment & Plan (03/24/2024 2:41 PM [employer]): - stable - continue celexa Assessment & Plan (01/22/2024 9:18 AM [employer]): - stable - continue celexa Assessment & Plan (07/24/2023 9:05 AM CDT): - stable - continue celexa Assessment & Plan (01/09/2023 9:22 AM CDT): - stable - continue current medication Assessment & Plan (09/20/2020 8:44 AM CDT): - stable - continue current medication Assessment & Plan (06/21/2020 7:53 AM CDT): - uncontrolled - had long discussion regarding risks/benefits of restarting citalopram in setting of tamoxifen use. Discussed studies showing 17,000 pts treated with tamoxifen vs not showing no increased risk of breast cancer 6 years out. - Reviewed oncology notes - discussed options to include restarting citalopram vs using seroquel which would not interact with tamoxifen -pt acknowledged understanding of risks/benfits and requests restarting citalopram - rec pt communicate with oncology to recheck tamoxifen metabolite levels after restarting citalopram - rec continue with counseling - f/u in 3 mo to re-eval citalopram dose and effects on depression sx. JACKIE (generalized anxiety disorder) 11/11/2019 Assessment & Plan (03/24/2024 2:40 PM [employer]): - stable - continue celexa Assessment & Plan (01/22/2024 9:18 AM [employer]): - stable - continue celexa Assessment & Plan (07/24/2023 9:05 AM CDT): - stable - continue celexa Assessment & Plan (01/09/2023 9:22 AM CDT): - stable - continue current medication Assessment & Plan (09/10/2022 11:54 AM CDT): - stable - continue current medication Assessment & Plan (03/24/2021 7:55 AM [employer]): - stable - continue current medication Assessment & Plan (09/20/2020 8:44 AM CDT): - stable - continue current medication Assessment & Plan (06/21/2020 7:53 AM CDT): - stable - continue counseling Assessment & Plan (02/09/2020 1:29 PM [employer]): - controlled - d/c celexa - f/u if sx return Assessment & Plan (11/11/2019 2:32 PM CDT): - stable - will decrease celexa to 10mg daily - f/u in 3 mo Class 3 severe obesity due t o excess calories without serious comorbidity with body mass index (BMI) of 40.0 to 44.9 in adult 11/11/2019 Assessment & Plan (03/24/2024 2:40 PM [employer]): - rec healthy diet and regular exercise Assessment & Plan (01/22/2024 9:18 AM [employer]): - rec healthy diet and regular exercise Assessment & Plan (07/24/2023 9:05 AM CDT): - rec healthy diet and regular exercise Assessment & Plan (01/09/2023 9:22 AM CDT): - rec healthy diet and regular exercise Assessment & Plan (09/10/2022 11:54 AM CDT): - rec healthy diet and regular exercise Assessment & Plan (03/24/2021 7:55 AM [employer]): - encouraged healthy diet and regular exercise for weight loss Assessment & Plan (09/20/2020 8:44 AM CDT): - recommend weight loss via diet and exercise - I recommend a healthy diet of 2,000 calories per day or less with plenty of fresh fruits and vegetables, whole grains, lean meats and fatty fish such as salmon - I recommend regular exercise of at least 30 minutes 4-5x/week to maintain a healthy heart, increase weight loss, and lower your blood pressure Assessment & Plan (06/21/2020 7:54 AM CDT): - encouraged healthy diet and regular exercise for weight loss Assessment & Plan (02/09/2020 1:29 PM [employer]): - discussed risks associated with obesity to include heart disease, hyperlipidemia, DOUGLAS, Diabetes, and OA. - recommend weight loss via diet and exercise Assessment & Plan (11/11/2019 2:32 PM CDT): - discussed risks associated with obesity to include heart disease, hyperlipidemia, DOUGLAS, Diabetes, and OA. - recommend weight loss via diet and exercise Ductal carcinoma in situ (DCIS) of right breast 06/30/2018 Assessment & Plan (03/24/2021 7:56 AM [employer]): - stable - continue plan per oncology Assessment & Plan (06/21/2020 7:54 AM CDT): - pt to f/u with oncology to discuss rechecking tamoxifen metabolite levels after restarting her citalopram Abnormal findings on diagnostic imaging of breas t 05/14/2018 Essential hypertension 03/29/2016 Assessment & Plan (03/24/2024 3:14 PM [employer]): - BP slightly high today, continue to monitor - continue ramapril Assessment & Plan (01/22/2024 9:18 AM [employer]): - stable - continue ramipril Assessment & Plan (07/24/2023 9:05 AM CDT): - stable - continue ramipril Assessment & Plan (01/09/2023 9:22 AM CDT): - stable - continue current medication Assessment & Plan (09/10/2022 11:54 AM CDT): - stable - continue current medication Assessment & Plan (04/16/2022 2:48 PM [employer]): - stable - continue current medication Assessment & Plan (08/25/2021 10:16 AM CDT): - stable - continue current medication Assessment & Plan (03/24/2021 7:56 AM [employer]): - stable - continue current medication Assessment & Plan (09/20/2020 8:44 AM CDT): - stable - continue current medication Assessment & Plan (02/09/2020 1:29 PM [employer]): - controlled - continue ramapril - could consider d/c med for trial - encouraged pt to work on weight loss first then if wants to do trial without med to let me know and f/u in clinic several weeks after stopping med to check BP. Assessment & Plan (11/11/2019 2:31 PM CDT): - controlled - continue ramipril 10mg daily - f/u in 3 mo for recheck Elevated liver enzymes 03/29/2016 Lesion of liver 03/29/2016 Immunizations Immunization Administration Dates Next Due Influenza, Quadrivalent, Ainsley l Culture-based MDCK, Preservative Free, Antibiotic Free, Intramuscular 12/20/2021,12/27/2018 Influenza, Quadrivalent, Rec ombinant, Egg Free, Preservative Free, Intramuscular 12/14/2022 Influenza, Quadrivalent, Spl it, Preservative Free, Intramuscular 12/25/2020,11/24/2019 Influenza, Trivalent, Cell C ulture-based MDCK, Preservative Free, Antibiotic Free, Intramuscular 12/18/2023 Influenza, Unspecified 12/09/2021,12/09/2020, Moderna SARS-CoV-2 Monovalen t Vaccination (12+ YRS) 01/16/2021,06/02/2020,05/05/2020 Tdap 09/20/2020 ZOSTER Recombinant 01/24/2020,11/24/2019 Social History Tobacco Use Types Packs/Day Years Used Date Smoking Tobacco: Never Smokeless Tobacco: Never Tobacco Cessation:Counseling Given: Not Answered Alcohol Use Standard Drinks/Week Comments Yes 3 (1 standard drink = 0.6 oz pur e alcohol) AUDIT-C Answer Date Recorded Q1: How often do you have a drink containing alc ohol? 2-3 times a week 01/14/2024 Q2: How many drinks containi ng alcohol do you have on a typical day when you are drinking? 1 or 2 01/14/2024 Q3: How often do you have si x or more drinks on one occasion? Never 01/14/2024 PHQ-2 Answer Date Recorded PHQ-2 Total Score (If total score is 3 or more points, staff should administer the PHQ-9) 0 01/22/2024 Personal Safety Answer Date Recorded Have you ever been in or are you currently in a harmful physical or emotional relationship or is someone making you feel afraid or unsafe? 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 Not on file Not on file Not on file Last Filed Vital Signs Vital Sign Reading Time Taken Comments Blood Pressure 157/96 04/15/2024 8:25 AM [employer] Pulse 109 04/15/2024 8:25 AM [employer] Temperature 36.4 C (97.5 F) 04/08/2024 1:47 PM [employer] Respiratory Rate 14 04/08/2024 1:47 PM [employer] Oxygen Saturation 100% 04/15/2024 8:25 AM [employer] Inhaled Oxygen Concentration - - Weight 128.1 kg (282 lb 6.4 oz) 04/15/2024 8:25 AM [employer] Height 177.8 cm (5' 10 ) 04/08/2024 1:47 PM [employer] Body Mass Index 40.52 04/08/2024 1:47 PM [employer] Plan of Treatment Not on file Medical Devices Implanted Type Area Oil Analyst Device Identifier Shelf Expiration Date Model / Serial / Lot Bard Peripheral Vascular Ultraclip Bard 17ga 10cm 2 Trigger Permanent Ultrasound [id number] - [id number] Implanted:Qty: 1 on 12/04/2023 by Lily Olea MD at [facility] Right: Breast [facility] [id number] / / [facility] Ghiatas 20ga 20cm 7cm Beaded Barbed Needle Breast Wire [id number] - [id number] Implanted:Qty: 2 on 01/14/2024 at [facility] [id number] / / Procedures Procedure Name Priority Date/Time Associated Diagnosis Comments RAD ONC ARIA COURSE SUMMARY 04/15/2024 3:10 PM [employer] RAD ONC ARIA SESSION SUMMARY 04/15/2024 8:17 AM [employer] RAD ONC ARIA SESSION SUMMARY 04/14/2024 8:07 AM [employer] RAD ONC ARIA SESSION SUMMARY 04/13/2024 7:57 AM [employer] RAD ONC ARIA SESSION SUMMARY 04/10/2024 8:10 AM [employer] RAD ONC ARIA SESSION SUMMARY 04/09/2024 8:06 AM [employer] RAD ONC ARIA SESSION SUMMARY 04/08/2024 8:36 AM [employer] RAD ONC ARIA SESSION SUMMARY 04/07/2024 8:42 AM [employer] RAD ONC ARIA SESSION SUMMARY 04/06/2024 8:22 AM [employer] RAD ONC ARIA SESSION SUMMARY 04/03/2024 8:13 AM [employer] RAD ONC ARIA SESSION SUMMARY 04/02/2024 8:15 AM [employer] RAD ONC ARIA SESSION SUMMARY 04/01/2024 8:17 AM [employer] RAD ONC ARIA SESSION SUMMARY 03/31/2024 8:17 AM [employer] RAD ONC ARIA SESSION SUMMARY 03/30/2024 8:00 AM [employer] RAD ONC ARIA SESSION SUMMARY 03/27/2024 8:03 AM [employer] RAD ONC ARIA SESSION SUMMARY 03/26/2024 8:16 AM [employer] RAD ONC ARIA SESSION SUMMARY 03/25/2024 8:11 AM [employer] EGFR Routine 03/24/2024 2:58 PM [employer] Shortness of breath MANUAL DIFFERENTIAL Routine 03/24/2024 2 :58 PM [employer] Shortness of breath DIFFERENTIAL AUTO Routine 03/24/2024 2:5 8 PM [employer] Shortness of breath CBC WITH AUTO DIFFERENTIAL Routine 03/24/2024 2:58 PM [employer] Shortness of breath COMPREHENSIVE METABOLIC PANEL Routine 03/24/2024 2:58 PM [employer] Shortness of breath CRP (ACUTE PHASE) Routine 03/24/2024 2:5 8 PM [employer] Shortness of breath XR CHEST PA LATERAL 2 VIEWS Schedule MICHAEL, Read MICHAEL (Appt Today, Awaiting Results) 03/24/2024 2:45 PM [employer] Shortness of breath RAD ONC ARIA SESSION SUMMARY 03/24/2024 8:21 AM [employer] RAD ONC ARIA SESSION SUMMARY 03/23/2024 8:08 AM [employer] RAD ONC ARIA SESSION SUMMARY 03/19/2024 8:05 AM [employer] RAD ONC ARIA SESSION SUMMARY 03/18/2024 8:15 AM [employer] RAD ONC ARIA SESSION SUMMARY 03/17/2024 10:31 AM [employer] HIGH RISK HPV DNA DETECTION WITH GENOTYPING Routine 01/27/2024 10:50 AM [employer] Pap smear for cervical cancer screening Well woman exam with routine gynecological exam POCT HEMOGLOBIN A1C Routine 01/22/2024 9 :06 AM [employer] Controlled type 2 diabetes mellitus without complication, without long-term current use of insulin (CMS/HCC) (HCC) LIPID PANEL Routine 01/20/2024 8:47 AM [employer] Controlled type 2 diabetes mellitus without complication, without long-term current use of insulin (CMS/HCC) (HCC) ALBUMIN CREATININE RATIO, URINE Routine 01/20/2024 8:47 AM [employer] Controlled type 2 diabetes mellitus without complication, without long-term current use of insulin (CMS/HCC) (HCC) SCREENING MAMMOGRAM BILATERAL W ALAN Schedule Routine, Read Routine (OP Routine) 11/07/2023 1:41 PM CDT History of partial mastectomy of right breast Abnormal findings on diagnostic imaging of breast DIABETIC EYE EXAM Routine 02/07/2023 COLONOSCOPY Routine 01/23/2019 from Last 3 Months or Most Recently Relevant to Health Maintenance Results * RAD ONC ARIA COURSE SUMMARY (04/15/2024 3:10 PM [employer]) Course Name [id number] ARIA Course Plan Date 02/26/2024 3:30 PM ARIA Elapsed Days 29 ARIA Treatment Start Date 03/17/2024 ARIA Treatment Site PTV_1500 ARIA Dose Given To Date (cGy) 1,500 ARIA Session Dosage Given (cGy) 0 ARIA Treatment Site RT BREAST_400 5 ARIA Dose Given To Date (cGy) 4,005 ARIA Session Dosage Given (cGy) 0 ARIA Plan ID RT BRST BST ARIA Fractions Treated 6 ARIA Prescribed Dose Per Fraction (cGy) 250 ARIA Prescribed Total Dose (cGy) 1,500 ARIA Plan ID R_BREAST ARIA Fractions Treated 15 ARIA Prescribed Dose Per Fraction (cGy) 267 ARIA Prescribed Total Dose (cGy) 4,005 ARIA 04/15/2024 3:10 PM [employer] us Not In File Miscellaneous RADIATION ONCOLOGY ORD ERABLES Final Result HOLLY * RAD ONC ARIA SESSION SUMMARY (04/15/2024 8:17 AM [employer]) Course Name [id number] ARIA Course Plan Date 02/26/2024 3:30 PM ARIA Elapsed Days 29 ARIA Treatment Start Date 03/17/2024 ARIA Treatment Site PTV_1500 ARIA Dose Given To Date (cGy) 1,500 ARIA Session Dosage Given (cGy) 250 ARIA Plan ID RT BRST BST ARIA Fractions Treated 6 ARIA Prescribed Dose Per Fraction (cGy) 250 ARIA Prescribed Total Dose (cGy) 1,500 ARIA 04/15/2024 8:17 AM [employer] us Not In File Miscellaneous RADIATION ONCOLOGY ORD ERABLES Final Result Performing Organization Address [facility] [[email or web address]] Co de Phone Number ARIA * RAD ONC ARIA SESSION SUMMARY (04/14/2024 8:07 AM [employer]) Course Name Gwendolyn ARIA Course Plan Date 02/26/2024 3:30 PM ARIA Elapsed Days 28 ARIA Treatment Start Date 03/17/2024 ARIA Treatment Site PTV_1500 ARIA Dose Given To Date (cGy) 1,250 ARIA Session Dosage Given (cGy) 250 ARIA Plan ID RT BRST BST ARIA Fractions Treated 5 ARIA Prescribed Dose Per Fraction (cGy) 250 ARIA Prescribed Total Dose (cGy) 1,500 ARIA 04/14/2024 8:07 AM [employer] us Not In File Miscellaneous RADIATION ONCOLOGY ORD ERABLES Final Result ARIA * RAD ONC ARIA SESSION SUMMARY (04/13/2024 7:57 AM [employer]) Course Name C1_Francheska ARIA Course Plan Date 02/26/2024 3:30 PM ARIA Elapsed Days 27 ARIA Treatment Start Date 03/17/2024 ARIA Treatment Site PTV_1500 ARIA Dose Given To Date (cGy) 1,000 ARIA Session Dosage Given (cGy) 250 ARIA Plan ID RT BRST BST ARIA Fractions Treated 4 ARIA Prescribed Dose Per Fraction (cGy) 250 ARIA Prescribed Total Dose (cGy) 1,500 ARIA 04/13/2024 7:57 AM [employer] us Not In File Miscellaneous RADIATION ONCOLOGY ORD ERABLES Final Result Performing Organization Address City/[facility]/ZIP Co de Phone Number HOLLY * RAD ONC ARIA SESSION SUMMARY (04/10/2024 8:10 AM [employer]) Course Name Dmitry_Francheska ARIA Course Plan Date 02/26/2024 3:30 PM ARIA Elapsed Days 24 ARIA Treatment Start Date 03/17/2024 ARIA Treatment Site PTV_1500 ARIA Dose Given To Date (cGy) 750 ARIA Session Dosage Given (cGy) 250 ARIA Plan ID RT BRST BST ARIA Fractions Treated 3 ARIA Prescribed Dose Per Fraction (cGy) 250 ARIA Prescribed Total Dose (cGy) 1,500 ARIA 04/10/2024 8:10 AM [employer] us Not In File Miscellaneous RADIATION ONCOLOGY ORD ERABLES Final Result ARIA * RAD ONC ARIA SESSION SUMMARY (04/09/2024 8:06 AM [employer]) Course Name Dmitry_RWilliam ARIA Course Plan Date 02/26/2024 3:30 PM ARIA Elapsed Days 23 ARIA Treatment Start Date 03/17/2024 ARIA Treatment Site PTV_1500 ARIA Dose Given To Date (cGy) 500 ARIA Session Dosage Given (cGy) 250 ARIA Plan ID RT BRST BST ARIA Fractions Treated 2 ARIA Prescribed Dose Per Fraction (cGy) 250 ARIA Prescribed Total Dose (cGy) 1,500 ARIA 04/09/2024 8:06 AM [employer] us Not In File Miscellaneous RADIATION ONCOLOGY ORD ERABLES Final Result Performing Organization Address [facility] [[email or web address]] Co de Phone Number HOLLY * RAD ONC ARIA SESSION SUMMARY (04/08/2024 8:36 AM [employer]) Course Name C1_R_Aidan ARIA Course Plan Date 02/26/2024 3:30 PM ARIA Elapsed Days 22 ARIA Treatment Start Date 03/17/2024 ARIA Treatment Site PTV_1500 ARIA Dose Given To Date (cGy) 250 ARIA Session Dosage Given (cGy) 250 ARIA Plan ID RT BRST BST ARIA Fractions Treated 1 ARIA Prescribed Dose Per Fraction (cGy) 250 ARIA Prescribed Total Dose (cGy) 1,500 ARIA 04/08/2024 8:36 AM [employer] us Not In File Miscellaneous RADIATION ONCOLOGY ORD ERABLES Final Result Performing Organization Address [facility] de Phone Number ARICharline * RAD ONC ARIA SESSION SUMMARY (04/07/2024 8:42 AM [employer]) Course Name C1_Francheska ARIA Course Plan Date 02/26/2024 3:30 PM ARIA Elapsed Days 21 ARIA Treatment Start Date 03/17/2024 ARIA Treatment Site RT BREAST_400 5 ARIA Dose Given To Date (cGy) 4,005 ARIA Session Dosage Given (cGy) 267 ARIA Plan ID R_BREAST ARIA Fractions Treated 15 ARIA Prescribed Dose Per Fraction (cGy) 267 ARIA Prescribed Total Dose (cGy) 4,005 ARIA 04/07/2024 8:42 AM [employer] us Not In File Miscellaneous RADIATION ONCOLOGY ORD ERABLES Final Result ROSALVAA * RAD ONC ARIA SESSION SUMMARY (04/06/2024 8:22 AM [employer]) Course Name Dmitry_Francheska ARIA Course Plan Date 02/26/2024 3:30 PM ARIA Elapsed Days 20 ARIA Treatment Start Date 03/17/2024 ARIA Treatment Site RT BREAST_400 5 ARIA Dose Given To Date (cGy) 3,738 ARIA Session Dosage Given (cGy) 267 ARIA Plan ID R_BREAST ARIA Fractions Treated 14 ARIA Prescribed Dose Per Fraction (cGy) 267 ARIA Prescribed Total Dose (cGy) 4,005 ARIA 04/06/2024 8:22 AM [employer] us Not In File Miscellaneous RADIATION ONCOLOGY ORD ERABLES Final Result ARIA * RAD ONC ARIA SESSION SUMMARY (04/03/2024 8:13 AM [employer]) Course Name C1_RWilliam ARIA Course Plan Date 02/26/2024 3:30 PM ARIA Elapsed Days 17 ARIA Treatment Start Date 03/17/2024 ARIA Treatment Site RT BREAST_400 5 ARIA Dose Given To Date (cGy) 3,471 ARIA Session Dosage Given (cGy) 267 ARIA Plan ID R_BREAST ARIA Fractions Treated 13 ARIA Prescribed Dose Per Fraction (cGy) 267 ARIA Prescribed Total Dose (cGy) 4,005 ARIA 04/03/2024 8:13 AM [employer] us Not In File Miscellaneous RADIATION ONCOLOGY ORD ERABLES Final Result ARIA * RAD ONC ARIA SESSION SUMMARY (04/02/2024 8:15 AM [employer]) Course Name AlissaRWilliam ARIA Course Plan Date 02/26/2024 3:30 PM ARIA Elapsed Days 16 ARIA Treatment Start Date 03/17/2024 ARIA Treatment Site RT BREAST_400 5 ARIA Dose Given To Date (cGy) 3,204 ARIA Session Dosage Given (cGy) 267 ARIA Plan ID R_BREAST ARIA Fractions Treated 12 ARIA Prescribed Dose Per Fraction (cGy) 267 ARIA Prescribed Total Dose (cGy) 4,005 ARIA 04/02/2024 8:15 AM [employer] us Not In File Miscellaneous RADIATION ONCOLOGY ORD ERABLES Final Result ARIA * RAD ONC ARIA SESSION SUMMARY (04/01/2024 8:17 AM [employer]) Course Name C1_R_Breas ARIA Course Plan Date 02/26/2024 3:30 PM ARIA Elapsed Days 15 ARIA Treatment Start Date 03/17/2024 ARIA Treatment Site RT BREAST_400 5 ARIA Dose Given To Date (cGy) 2,937 ARIA Session Dosage Given (cGy) 267 ARIA Plan ID R_BREAST ARIA Fractions Treated 11 ARIA Prescribed Dose Per Fraction (cGy) 267 ARIA Prescribed Total Dose (cGy) 4,005 ARIA 04/01/2024 8:17 AM [employer] us Not In File Miscellaneous RADIATION ONCOLOGY ORD ERABLES Final Result Performing Organization Address [facility] [[email or web address]] Co de Phone Number ARIA * RAD ONC ARIA SESSION SUMMARY (03/31/2024 8:17 AM [employer]) Course Name C1_R_Breas ARIA Course Plan Date 02/26/2024 3:30 PM ARIA Elapsed Days 14 ARIA Treatment Start Date 03/17/2024 ARIA Treatment Site RT BREAST_400 5 ARIA Dose Given To Date (cGy) 2,670 ARIA Session Dosage Given (cGy) 267 ARIA Plan ID R_BREAST ARIA Fractions Treated 10 ARIA Prescribed Dose Per Fraction (cGy) 267 ARIA Prescribed Total Dose (cGy) 4,005 ARIA 03/31/2024 8:17 AM [employer] us Not In File Miscellaneous RADIATION ONCOLOGY ORD ERABLES Final Result HOLLY * RAD ONC ARIA SESSION SUMMARY (03/30/2024 8:00 AM [employer]) Course Name C1_Francheska ARIA Course Plan Date 02/26/2024 3:30 PM ARIA Elapsed Days 13 ARIA Treatment Start Date 03/17/2024 ARIA Treatment Site RT BREAST_400 5 ARIA Dose Given To Date (cGy) 2,403 ARIA Session Dosage Given (cGy) 267 ARIA Plan ID R_BREAST ARIA Fractions Treated 9 ARIA Prescribed Dose Per Fraction (cGy) 267 ARIA Prescribed Total Dose (cGy) 4,005 ARIA 03/30/2024 8:00 AM [employer] us Not In File Miscellaneous RADIATION ONCOLOGY ORD ERABLES Final Result Performing Organization Address [facility] de Phone Number ARICharline * RAD ONC ARIA SESSION SUMMARY (03/27/2024 8:03 AM [employer]) Course Name C1_RWilliam ARIA Course Plan Date 02/26/2024 3:30 PM ARIA Elapsed Days 10 ARIA Treatment Start Date 03/17/2024 ARIA Treatment Site RT BREAST_400 5 ARIA Dose Given To Date (cGy) 2,136 ARIA Session Dosage Given (cGy) 267 ARIA Plan ID R_BREAST ARIA Fractions Treated 8 ARIA Prescribed Dose Per Fraction (cGy) 267 ARIA Prescribed Total Dose (cGy) 4,005 ARIA 03/27/2024 8:03 AM [employer] us Not In File Miscellaneous RADIATION ONCOLOGY ORD ERABLES Final Result Performing Organization Address City/[facility] [[email or web address]] Co de Phone Number ROSALVAA * RAD ONC ARIA SESSION SUMMARY (03/26/2024 8:16 AM [employer]) Course Name C1_RWilliam ARIA Course Plan Date 02/26/2024 3:30 PM ARIA Elapsed Days 9 ARIA Treatment Start Date 03/17/2024 ARIA Treatment Site RT BREAST_400 5 ARIA Dose Given To Date (cGy) 1,869 ARIA Session Dosage Given (cGy) 267 ARIA Plan ID R_BREAST ARIA Fractions Treated 7 ARIA Prescribed Dose Per Fraction (cGy) 267 ARIA Prescribed Total Dose (cGy) 4,005 ARIA 03/26/2024 8:16 AM [employer] us Not In File Miscellaneous RADIATION ONCOLOGY ORD ERABLES Final Result HOLLY * RAD ONC ARIA SESSION SUMMARY (03/25/2024 8:11 AM [employer]) Course Name Dmitry_Francheska _2023 ARIA Course Plan Date 02/26/2024 3:30 PM ARIA Elapsed Days 8 ARIA Treatment Start Date 03/17/2024 ARIA Treatment Site RT BREAST_400 5 ARIA Dose Given To Date (cGy) 1,602 ARIA Session Dosage Given (cGy) 267 ARIA Plan ID R_BREAST ARIA Fractions Treated 6 ARIA Prescribed Dose Per Fraction (cGy) 267 ARIA Prescribed Total Dose (cGy) 4,005 ARIA 03/25/2024 8:11 AM [employer] us Not In File Miscellaneous RADIATION ONCOLOGY ORD ERABLES Final Result HOLLY * (ABNORMAL) eGFR (03/24/2024 2:58 PM [employer]) eGFR 52(L) >=60 mL/min/1. 73 m2 Comment: Interpretive Data Reference Interval Normal >/= 90 mL/min/1.73m2 Mildly decreased* 60 - 89 mL/min/1.73m2 Mildly to moderately decreased 45 - 59 mL/min/1.73m2 Moderately to severely decreased 30 - 44 mL/min/1.73m2 Severely decreased 15 - 29 mL/min/1.73m2 Kidney Failure < 15 mL/min/1.73m2 *Relative to young adult level Estimated glomerular filtration rate is determined by the 2020 CKD-EPI equation recommended by the National Kidney Foundation (A Unifying Approach to GFR Estimation: Recommendations of the NKF-ASK Task Force on Reassessing the Inclusion of Race in Diagnosing Kidney Disease, JASN 2020). The CKD-EPI equation should not be used for patients with unstable renal function and has not been validated in children and those over 70. Current interpretive data was last reviewed 2021. Testing performed by: [address] [address] Blood 03/24/2024 2:58 PM [employer] 03/24/2024 4:41 PM [employer] us Virgilio Aguilera MD LAB BLOOD ORDERABLES [facility] al Result E[facility]OTT [facility] Department [place] [address] * Differential, auto (03/24/2024 2:58 PM [employer]) Neutrophil abs 2.7 1.5 - 6.5 K/cumm Comment:Testing performed by : [address] [address] Imm gran abs 0.0 0.0 - 0.1 K/cumm ELLIOTT Comment:Testing performed by : [address] [address] Lymphocyte abs 1.8 0.8 - 3.3 K/cumm ELLIOTT Comment:Testing performed by : [address] [address] Monocyte abs 0.6 0.2 - 0.8 K/cumm ELLIOTT Comment:Testing performed by : [address] [address] Eosinophil abs 0.0 0.0 - 0.5 K/cumm ELLIOTT Comment:Testing performed by : [address] [address] Basophil abs 0.0 0.0 - 0.1 K/cumm ELLIOTT Comment:Testing performed by : [address] [address] Neutrophil pct 52.0 % [facility] Comment: Interpretive Data Percent cell count reference ranges are not reported, since discordance with absolute values may lead to misinterpretation of CBC data. Current Interpretive Data was last revised on 2017. Testing performed by: [address] [address] Imm gran pct 0.2 % [facility] Comment: Interpretive Data Percent cell count reference ranges are not reported, since discordance with absolute values may lead to misinterpretation of CBC data. Current Interpretive Data was last revised on 2017. Testing performed by: [address] [address] Lymphocyte pct 35.1 % [facility] Comment: Interpretive Data Percent cell count reference ranges are not reported, since discordance with absolute values may lead to misinterpretation of CBC data. Current Interpretive Data was last revised on 2017. Testing performed by: [address] [address] Monocyte pct 11.5 % [facility] Comment: Interpretive Data Percent cell count reference ranges are not reported, since discordance with absolute values may lead to misinterpretation of CBC data. Current Interpretive Data was last revised on 2017. Testing performed by: [address] [address] Eosinophil pct 0.8 % [facility] Comment: Interpretive Data Percent cell count reference ranges are not reported, since discordance with absolute values may lead to misinterpretation of CBC data. Current Interpretive Data was last revised on 2017. Testing performed by: [address] [address] Basophil pct 0.4 % [facility] Comment: Interpretive Data Percent cell count reference ranges are not reported, since discordance with absolute values may lead to misinterpretation of CBC data. Current Interpretive Data was last revised on 2017. Testing performed by: [address] [address] Blood 03/24/2024 2:58 PM [employer] 03/24/2024 4:46 PM [employer] us Virgilio Aguilera MD LAB BLOOD ORDERABLES Fin al Result [facility] [address] [facility] Department [place] [address] * (ABNORMAL) CBC with auto differential (03/24/2024 2:58 PM [employer]) WBC 5.2 3.8 - 9.9 K/cumm Comment:Testing performed by : [address] [address] Hgb 11.1(L) 11.9 - 15.5 g/dL ELLIOTT Comment:Testing performed by : [address] [address] Hct 34.6(L) 35.6 - 45.5 % ELLIOTT Comment:Testing performed by : [address] [address] Plt 233 150 - 400 K/cumm ELLIOTT Comment:Testing performed by : [address], [address] MPV 10.2 9.1 - 12.3 fL ELLIOTT Comment:Testing performed by : [address] [address] RBC 3.93 3.90 - 5.20 M/cumm ELLIOTT Comment:Testing performed by : [address] [address] MCV 88.0 81.3 - 96.4 fL ELLIOTT Comment:Testing performed by : [address] [address] MCH 28.2 27.1 - 33.3 pg ELLIOTT Comment:Testing performed by : [address], [address] MCHC 32.1(L) 32.3 - 35.7 g/dL ELLIOTT Comment:Testing performed by : [address], [address] RDW CV 14.6 11.1 - 14.9 % ELLIOTT Comment:Testing performed by : [address] [address] RDW SD 47.1 35.7 - 48.1 fL ELLIOTT SANTANA Comment:Testing performed by : [address] [address] NRBC abs 0.00 0.00 - 0.01 K/cumm ELLIOTT SANTANA Comment:Testing performed by : [address] [address] Blood 03/24/2024 2:58 PM [employer] 03/24/2024 4:46 PM [employer] Virgilio Aguilera MD LAB BLOOD ORDERABLES Flavio drake Result - Final Performing Organization Address [facility] [[email or web address]] Co de Phone Number ELLIOTT [address] [employer] [place] [address] * Manual Differential (03/24/2024 2:58 PM [employer]) Differential Auto Comment:Testing performed by : [address], [address] RBC morphology Consistent with RBC Indicies ELLIOTT Comment:Testing performed by : [address] [address] Platelet estimate Adequate ELLIOTT Comment:Testing performed by : [address], [address] Blood 03/24/2024 2:58 PM [employer] 03/24/2024 4:46 PM [employer] Virgilio Aguilera MD LAB BLOOD ORDERABLES Fin al Result Performing Organization Address [facility] [[email or web address]] Co de Phone Number [address] [place] [address] * (ABNORMAL) CRP (acute phase) (03/24/2024 2:58 PM [employer]) CRP 49.1(H) <=10.0 mg/L Comment:Testing performed by : [address] [address] Blood 03/24/2024 2:58 PM [employer] 03/24/2024 4:41 PM [employer] us Virgilio Aguilera MD LAB BLOOD ORDERABLES Fin al Result ELLIOTT [address] [facility] Department [place] [address] * (ABNORMAL) Comprehensive metabolic panel (03/24/2024 2:58 PM [employer]) Sodium 139 135 - 145 mmol/L Comment:Testing performed by : [address] [address] Potassium, pl 3.9 3.3 - 4.9 mmol/L ELLIOTT Comment:Testing performed by : [address] [address] Chloride 104 97 - 110 mmol/L ELLIOTT Comment:Testing performed by : [address] [address] CO2 24 22 - 32 mmol/L ELLIOTT Comment:Testing performed by : [address] [address] Anion gap 11 2 - 15 mmol/L ELLIOTT Comment:Testing performed by : [address] [address] BUN 23 6 - 25 mg/dL ELLIOTT Comment:Testing performed by : [address] [address] Creatinine 1.20(H) 0.60 - 1.10 mg/dL ELLIOTT Comment:Testing performed by : [address] [address] Glucose 113 70 - 199 mg/dL ELLIOTT Comment: Interpretive Data Fasting glucose >/= 126 mg/dl is diagnostic for diabetes. Fasting is defined as no caloric intake for at least 8 hours. Fasting glucose between 100 mg/dl to 125 mg/dl is diagnostic of prediabetes. In a patient with classic symptoms of hyperglycemia or hyperglycemic crisis, a random glucose >/= 200 mg/dl is diagnostic for diabetes. In the absence of unequivocal hyperglycemia, results should be confirmed by repeat testing. The classification and Diagnosis of Diabetes Diabetes Care 2021; 46: S19-S40. Current interpretive data was last revised 2022. Testing performed by: [address] [address] Calcium 9.4 8.5 - 10.3 mg/dL ELLIOTT Comment:Testing performed by : [address] [address] Bilirubin, total 0.2 0.1 - 1.2 mg/dL ELLIOTT Comment:Testing performed by : [address] [address] Protein, pl 7.8 6.5 - 8.5 g/dL ELLIOTT Comment:Testing performed by : [address] [address] Albumin 4.2 3.5 - 5.0 g/dL ELLIOTT Comment:Testing performed by : [address] [address] Alk phos 62 40 - 130 Units/L ELLIOTT Comment:Testing performed by : [address] [address] ALT 26 7 - 45 Units/L ELLIOTT Comment:Testing performed by : [address] [address] AST 27 10 - 45 Units/L [facility] Comment:Testing performed by : [address] [address] Blood 03/24/2024 2:58 PM [employer] 03/24/2024 4:41 PM [employer] us Virgilio Aguilera MD LAB BLOOD ORDERABLES Fin al Result [facility] Department [place] [address] * XR Chest Pa Lateral 2 Views (03/24/2024 2:45 PM FARMWORKER DIVERSIFIED CROPS) Anatomical Region Laterality Modality Body, Chest N/A Computed Radiogr aphy 03/24/2024 4:23 PM FARMWORKER [employer] CROPS Narrative 03/24/2024 4:25 PM FARMWORKER [employer] CROPS EXAM DESCRIPTION: XR CHEST PA LATERAL 2 VIEWS REASON FOR STUDY: 58 yo F with cough, sob. please evaluate for pna TECHNIQUE: PA and lateral radiographic view(s) of the chest. COMPARISON: Chest CT 12/25/2023. FINDINGS: LUNGS: There is mild left basilar opacity, atelectasis versus pneumonia. Subtle opacity in the right base as well. No significant effusion. No pneumothorax. HEART/MEDIASTINUM: Cardiac silhouette is mildly enlarged. Pulmonary vascularity is within normal limits. Opacity in the retrocardiac inferior mediastinum may represent hiatal hernia. Hiatal hernia was demonstrated on prior chest CT. LINES/TUBES: None. BONES: There is no acute osseous abnormality. IMPRESSION: Mild bibasilar opacity, atelectasis versus pneumonia. Follow-up is recommended. THIS IS AN ELECTRONICALLY VERIFIED FINAL REPORT 03/24/2024 4:25 PM - Electronically signed by Brie Beck M.D. TW: KAUSHIK Report ID: [id number] Reading Location: [place] [address] Procedure Note Brie Beck MD - 03/24/2024 EXAM DESCRIPTION: XR CHEST PA LATERAL 2 VIEWS REASON FOR STUDY: 58 yo F with cough, sob. please evaluate for pna TECHNIQUE: PA and lateral radiographic view(s) of the chest. COMPARISON: Chest CT 12/25/2023. FINDINGS: LUNGS: There is mild left basilar opacity, atelectasis versus pneumonia. Subtle opacity in the right base as well. No significant effusion. No pneumothorax. HEART/MEDIASTINUM: Cardiac silhouette is mildly enlarged. Pulmonary vascularity is within normal limits. Opacity in the retrocardiac inferior mediastinum may represent hiatal hernia. Hiatal hernia was demonstratedon prior chest CT. LINES/TUBES: None. BONES: There is no acute osseous abnormality. IMPRESSION: Mild bibasilar opacity, atelectasis versus pneumonia.Follow-up is recommended. THIS IS AN ELECTRONICALLY VERIFIED FINAL REPORT 03/24/2024 4:25 PM - Electronically signed by Brie Beck M.D. TW: TW Report ID: [id number] Reading Location: [id number] us Virgilio Aguilera MD IMG XR PROCEDURES Final Result * RAD ONC ARIA SESSION SUMMARY (03/24/2024 8:21 AM FARMWORKER [employer] CROPS) Course Name Dmitry_Francheska ARIA Course Plan Date 02/26/2024 3:30 PM ARIA Elapsed Days 7 ARIA Treatment Start Date 03/17/2024 ARIA Treatment Site RT BREAST_400 5 ARIA Dose Given To Date (cGy) 1,335 ARIA Session Dosage Given (cGy) 267 ARIA Plan ID R_BREAST ARIA Fractions Treated 5 ARIA Prescribed Dose Per Fraction (cGy) 267 ARIA Prescribed Total Dose (cGy) 4,005 ARIA 03/24/2024 8:21 AM FARMWORKER [employer]OPS us Not In File Miscellaneous RADIATION ONCOLOGY ORD ERABLES Final Result ARIA * RAD ONC ARIA SESSION SUMMARY (03/23/2024 8:08 AM FARMWORK[employer]) Course Name Gwendolyn ARIA Course Plan Date 02/26/2024 3:30 PM ARIA Elapsed Days 6 ARIA Treatment Start Date 03/17/2024 ARIA Treatment Site RT BREAST_400 5 ARIA Dose Given To Date (cGy) 1,068 ARIA Session Dosage Given (cGy) 267 ARIA Plan ID R_BREAST ARIA Fractions Treated 4 ARIA Prescribed Dose Per Fraction (cGy) 267 ARIA Prescribed Total Dose (cGy) 4,005 ARIA 03/23/2024 8:08 AM FARMWORKER [employer] CROPS us Not In File Miscellaneous RADIATION ONCOLOGY ORD ERABLES Final Result ARIA * RAD ONC ARIA SESSION SUMMARY (03/19/2024 8:05 AM FARMWORKER [employer] CROPS) Course Name C1_RWilliam ARIA Course Plan Date 02/26/2024 3:30 PM ARIA Elapsed Days 2 ARIA Treatment Start Date 03/17/2024 ARIA Treatment Site RT BREAST_400 5 ARIA Dose Given To Date (cGy) 801 ARIA Session Dosage Given (cGy) 267 ARIA Plan ID R_BREAST ARIA Fractions Treated 3 ARIA Prescribed Dose Per Fraction (cGy) 267 ARIA Prescribed Total Dose (cGy) 4,005 ARIA 03/19/2024 8:05 AM FARMWORKER [employer] CROPS us Not In File Miscellaneous RADIATION ONCOLOGY ORD ERABLES Final Result Performing Organization Address City/[facility]/ZIP Co de Phone Number ARIA * RAD ONC ARIA SESSION SUMMARY (03/18/2024 8:15 AM FARMWORKER [employer]) Course Name C1_RWilliam ARIA Course Plan Date 02/26/2024 3:30 PM ARIA Elapsed Days 1 ARIA Treatment Start Date 03/17/2024 ARIA Treatment Site RT BREAST_400 5 ARIA Dose Given To Date (cGy) 534 ARIA Session Dosage Given (cGy) 267 ARIA Plan ID R_BREAST ARIA Fractions Treated 2 ARIA Prescribed Dose Per Fraction (cGy) 267 ARIA Prescribed Total Dose (cGy) 4,005 ARIA 03/18/2024 8:15 AM FARMWORKER [employer] CROPS us Not In File Miscellaneous RADIATION ONCOLOGY ORD ERABLES Final Result ARIA * RAD ONC ARIA SESSION SUMMARY (03/17/2024 10:31 AM FARMWORKER [employer]) Course Name C1_RWilliam ARIA Course Plan Date 02/26/2024 3:30 PM ARIA Elapsed Days 0 ARIA Treatment Start Date 03/17/2024 ARIA Treatment Site RT BREAST_400 5 ARIA Dose Given To Date (cGy) 267 ARIA Session Dosage Given (cGy) 267 ARIA Plan ID R_BREAST ARIA Fractions Treated 1 ARIA Prescribed Dose Per Fraction (cGy) 267 ARIA Prescribed Total Dose (cGy) 4,005 ARIA 03/17/2024 10:3 1 AM FARMWORKER [employer] CROPS us Not In File Miscellaneous RADIATION ONCOLOGY ORD ERABLES Final Result HOLLY * High Risk HPV DNA Detection with Genotyping (Molecular component) (01/27/2024 10:50 AM FARMWORKER [employer]ERSIFIED CROPS) HPV HR 16 Not Detected Not Detected [facility] Comment:Testing performed by : [facility], [address] [place]., [address] HPV HR 18 Not Detected Not Detected [facility] Comment:Testing performed by : [facility], [address] [place]., [address] HPV HR Non 16/18 Not Detected Not Detected [facility] Comment: Interpretive Data Nucleic acid amplification for detection of high-risk Human Papilloma virus (HPV) is performed by the Cassi Tricia 6800 HPV test. This assay specifically detects HPV-16 and HPV-18 genotypes. The following HPV genotypes are detected as high-risk HPV: HPV-31, 33, 35, ,39, 45, 51, 52, 56, 58, 59, 66, and 68. This assay has been approved by the [place] Food and Drug Administration for detection of HPV in cervical specimens collected by a physician using an endocervical brush/spatula or cervical broom and placed in the ThinPrep Pap Test PreservCyt collection containers. The performance characteristics of this test have been verified by the [facility] Molecular Infectious Disease laboratory. Correlate with separately reported cytology results, as applicable. Interpretive data last revised 22 Testing performed by: [facility], [address] [place]., [address] Endocervical 01/27/2024 10:5 0 AM [employer] 01/27/2024 7:32 PM [employer] Narrative E[facility] - 01/28/2024 4:54 AM [employer]ARM[employer] Clinical history and diagnosis->screening Testing type->Screening Last menstrual period (date if known)->postmenopausal Sowmya Roque MD LAB BODY FLUIDS AND STOOL S ORDERABLES Final Result [facility] [address] [facility] Department [place] [address] [facility] * (ABNORMAL) POCT hemoglobin A1c (01/22/2024 9:06 AM FARMWORKER [employer] CROPS) Hemoglobin A1C, POC 6.8 4.0 - 5.6 % Blood 01/22/2024 9:06 AM FARMWORK[employer]OPS Virgilio Aguilera MD POINT OF CARE TEST ORDER SHANNON Final Result * Albumin Creatinine Ratio, Urine (01/20/2024 8:47 AM FARMWORKER [employer]OPS) Creatinine, ur 73 20 - 275 mg/dL [facility] Microalbumin, ur 0.5 See Note: mg/dL [facility] Comment: Reference Range: Reference Range Not established Microalbumin/creat ratio 7 <30 mg/g creat [facility] Comment: The ADA defines abnormalities in albumin excretion as follows: Albuminuria Category Result (mg/g creatinine) Normal to Mildly increased <30 Moderately increased 30-299 Severely increased > OR = 300 The ADA recommends that at least two of three specimens collected within a 3-6 month period be abnormal before considering a patient to be within a diagnostic category. Urine 01/20/2024 8:47 AM FARMWORK[employer] CROPS 01/20/2024 8:47 AM FARMWORKER [employer] CROPS Narrative [facility] - 01/21/2024 4:37 AM FARMWORK[employer]OPS FASTING:YES FASTING: YES Virgilio Aguilera MD LAB URINE ORDERABLES Fin al Result [facility] [address] [address] [place] [id number] * (ABNORMAL) Lipid panel (01/20/2024 8:47 AM FARMWORK[employer] CROPS) Cholesterol 128 <200 mg/dL [facility] HDL 48(L) > OR = 50 mg/dL [facility] Triglycerides 171(H) <150 mg/dL [facility] LDL 55 mg/dL (calc) [facility] Comment: Reference range: <100 Desirable range <100 mg/dL for primary prevention; <70 mg/dL for patients with CHD or diabetic patients with > or = 2 CHD risk factors. LDL-C is now calculated using the Carolin calculation, which is a validated novel method providing better accuracy than the Friedewald equation in the estimation of LDL-C. Edward SS et al. CHERYLE. 2013;310(19): 6981-8875 (http://education.BTC.sx/faq/BPK802) Chol/HDL ratio 2.7 <5.0 (calc) [facility] Non-HDL, (LDL+VLDL) 80 <130 mg/dL (calc) [facility] Comment: For patients with diabetes plus 1 major ASCVD risk factor, treating to a non-HDL-C goal of <100 mg/dL (LDL-C of <70 mg/dL) is considered a therapeutic option. Blood 01/20/2024 8:47 AM [employer]OPS 01/20/2024 8:47 AM FARMWORK[employer] CROPS Narrative [facility] - 01/21/2024 4:37 AM [employer]OPS FASTING:YES FASTING: YES us Virgilio Aguilera MD LAB BLOOD ORDERABLES Fin al Result [facility] [address] [place] [address] * Screening Mammogram Bilateral W Alan (11/07/2023 1:41 PM CDT) Anatomical Region Laterality Modality Breast Bilateral Mammography Narrative 11/08/2023 9:15 AM CDT Mammogram Technique: Bilateral Digital Breast Tomosynthesis, Bilateral C-view 2D Screening mammogram. Views obtained: bilateral craniocaudal and bilateral mediolateral oblique. Computer Aided Detection was performed. Mammogram Findings: The present examination has been compared to prior imaging studies performed at [facility] on 05/14/2018, 06/15/2019, 06/20/2020, 10/18/2021 and 11/01/2022. There are scattered areas of fibroglandular density. There is a focal asymmetry in the middle upper outer quadrant of the right breast. There is no suspicious abnormality in the left breast. Impression: Focal asymmetry in the right breast requires additional evaluation. Diagnostic mammogram and possible ultrasound of the right breast are recommended at this time. OVERALL FINAL ASSESSMENT: BI-RADS CATEGORY 0: Incomplete: Need additional imaging evaluation. Procedure Note Karolina Khan MD - 11/08/2023 Mammogram Technique: Bilateral Digital Breast Tomosynthesis, Bilateral C-view 2D Screening mammogram. Views obtained: bilateral craniocaudal and bilateral mediolateral oblique. Computer Aided Detection was performed. Mammogram Findings: The present examination has been compared to prior imaging studies performed at [facility] on 05/14/2018, 06/15/2019,06/20/2020, 10/18/2021 and 11/01/2022. There are scattered areas of fibroglandular density. There is a focal asymmetry in the middle upper outer quadrant of theright breast. There is no suspicious abnormality in the left breast. Impression: Focal asymmetry in the right breast requires additional evaluation. Diagnostic mammogram and possible ultrasound of the right breast are recommended at this time. OVERALL FINAL ASSESSMENT: BI-RADS CATEGORY 0: Incomplete: Need additional imaging evaluation. Helena Valerio NP IMG MAMMO PROCEDURES Final Result * Diabetic Eye Exam (02/07/2023) Historical Provider HEALTH MAINTENANCE Final Result * Colonoscopy (01/23/2019) Anatomical Region Laterality Modality Other 01/23/2019 Historical Provider ENDOSCOPY PROCEDURES Ekaterina l Result from Last 3 Months or Most Recently Relevant to Health Maintenance Insurance [facility]PP[facility] Address: [facility] [address] [place] [address] [facility] H[facility]/PPO Address: [id number] [place] [address] [facility] H[facility]/PPO Address: [address] [address] [place] [address] Care Teams Education Site Manager Relationship Specialty Start Date End Date Virgilio Aguilera MD [address] [place] [address] [address] [place] [address] PCP - General Family Medicine 11/11/19 [place] [address] [place] [address] DIV IM MEDICAL ONCOLOGY, [facility] [address] [place] [address] Medical Oncologist/Bilingual Administrative Assistant Hematology and Oncology 01/11/23 Teetee Burch NP [address] [place] [address] [address] [facility] [place] [address] [place] [address] Nurse Practitioner Medical Oncology 07/10/23 Aft, Larissa De Jesus MD PhD [address] [place] [address] Surgeon Surgical Oncology 12/26/23 Ene Telles MD [address] [place] [address] [address] [place] [address] Radiation Oncologist Radiation Oncology 12/26/23 Jasmine Aguirre MD PhD [address] [facility] [address] [place] [address] Radiation Oncologist Radiation Oncology 01/28/24
--- OUTSIDE RECORDS SUMMARY | 2024-04-29 13:52 | XMS_ITS | Patient Health Summary ---
Author Organization [facility] Address [address] [place] [address] Care Team Providers Care Measurement Operator Name Role Phone Unavailable Primary Care Provider Unavailabl e Note from [facility],non-owned Affiliates and Associated Physician Practices is amultiple site organization consisting of ambulatory clinics and hospital sitesin [place], [place], [place] and [place]. This disclosure is being madepursuant to the Care Everywhere program and may not contain all information available regarding this patient. Last updated 17.[facility] Allergies No known active allergies Medications Be aware that medications may not be up to date on this document. Always verify current medications with the patient. No known medications Immunizations * TDAP (7yrs+)(Given 2018) * iNFLUENZA VACCINE, RECOM-POZO, QUADR. (FLUBLOCK QUADRIVALENT; 18Y+) (RIV4)(Given 12/18/2017) Social History Tobacco Use Types Packs/Day Years Used Date Smoking Tobacco: Never Assessed Sex and Gender Information Value Date Recorded Sex Assigned at Not on file Gender Identity Not on file Sexual Orientation Not on file
--- OUTSIDE RECORDS SUMMARY | 2024-04-29 13:52 | XMS_ITS ---
Author Organization [facility] Address [address] [place] [address] Care Team Providers Care Assayer Helper Name Role Phone Virgilio Aguilera MD Primary Care Provider + Chi Lewis DO Unavailable [phone] Teetee Burch CHILD CARE SITTER Unavailable + [phone] Aft, Larissa De Jesus MD PhD Unavailable [phone] Ene Telles MD Unavailable [phone] Jasmine Aguirre MD PhD Unavailable [phone] Active Problems Problem Noted Date Diagnosed Date Shortness of breath 03/24/2024 Assessment & Plan (03/24/2024 3:14 PM WRAPPER SELECTOR): - unclear etiology - cxr, labs - possible viral or bacterial PNA vs other infection vs reactive airway - tx with steroid, albuterol, empiric abx due to high risk 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, estrogen receptor positive 12/24/2023 Cancer Staging:Clinical stage from 12/27/2023:Stage IA(cT1b, cN0, cM0, G2, ER+, MO-, HER2-) - Signed by Ene Telles MD on 12/27/2023 Pathologic stage from 02/26/2024: rpT1b, pN0 - Unsigned Controlled type 2 diabetes m conor without complication, without long-term current use of insulin ([facility] [place] [facility]) 01/09/2023 Assessment & Plan (01/22/2024 9:19 AM WRAPPER SELECTOR): - stable - continue metformin - discussed [...] 03/24/2021 Assessment & Plan (01/22/2024 9:19 AM WRAPPER SELECTOR): - Reviewed with the patient BMI, blood [...] loss Assessment & Plan (03/24/2021 7:55 AM WRAPPER SELECTOR): - Reviewed with the patient BMI, blood pressure, diet, exercise, and encouraged healthy lifestyle choices. - Screened for high risk behaviors, diet and exercise habits, and symptoms of depression. - check screening labs - encouraged regular exercise and weight loss Moderate episode of recurrent major depressive d isorder 06/21/2020 Assessment & Plan (03/24/2024 2:41 PM WRAPPER SELECTOR): - stable - continue celexa Assessment & Plan (01/22/2024 9:18 AM WRAPPER SELECTOR): - stable - continue celexa Assessment & [...] 11/11/2019 Assessment & Plan (03/24/2024 2:40 PM WRAPPER SELECTOR): - stable - continue celexa Assessment & Plan (01/22/2024 9:18 AM WRAPPER SELECTOR): - stable - continue celexa Assessment & Plan (07/24/2023 9:05 AM CDT): - stable - continue celexa Assessment & Plan (01/09/2023 9:22 AM CDT): - stable - continue current medication Assessment & Plan (09/10/2022 11:54 AM CDT): - stable - continue current medication Assessment & Plan (03/24/2021 7:55 AM WRAPPER SELECTOR): - stable - continue current medication Assessment & Plan (09/20/2020 8:44 AM CDT): - stable - continue current medication Assessment & Plan (06/21/2020 7:53 AM CDT): - stable - continue counseling Assessment & Plan (02/09/2020 1:29 PM WRAPPER SELECTOR): - controlled - d/c celexa - f/u if sx return Assessment & Plan (11/11/2019 2:32 PM CDT): - stable - will decrease celexa to 10mg daily - f/u in 3 mo Class 3 severe obesity due t o excess calories without serious comorbidity with body mass index (BMI) of 40.0 to 44.9 in adult 11/11/2019 Assessment & Plan (03/24/2024 2:40 PM WRAPPER SELECTOR): - rec healthy diet and regular exercise Assessment & Plan (01/22/2024 9:18 AM WRAPPER SELECTOR): - rec healthy diet and regular exercise Assessment & Plan (07/24/2023 9:05 AM CDT): - rec healthy diet and regular exercise Assessment & Plan (01/09/2023 9:22 AM CDT): - rec healthy diet and regular exercise Assessment & Plan (09/10/2022 11:54 AM CDT): - rec healthy diet and regular exercise Assessment & Plan (03/24/2021 7:55 AM WRAPPER SELECTOR): - encouraged healthy diet and regular exercise [...] loss Assessment & Plan (02/09/2020 1:29 PM WRAPPER SELECTOR): - discussed risks associated with obesity to [...] 06/30/2018 Assessment & Plan (03/24/2021 7:56 AM WRAPPER SELECTOR): - stable - continue plan per oncology Assessment & Plan (06/21/2020 7:54 AM CDT): - pt to f/u with oncology to discuss rechecking tamoxifen metabolite levels after restarting her citalopram Abnormal findings on diagnostic imaging of breas t 05/14/2018 Essential hypertension 03/29/2016 Assessment & Plan (03/24/2024 3:14 PM WRAPPER SELECTOR): - BP slightly high today, continue to monitor - continue ramapril Assessment & Plan (01/22/2024 9:18 AM WRAPPER SELECTOR): - stable - continue ramipril Assessment & Plan (07/24/2023 9:05 AM CDT): - stable - continue ramipril Assessment & Plan (01/09/2023 9:22 AM CDT): - stable - continue current medication Assessment & Plan (09/10/2022 11:54 AM CDT): - stable - continue current medication Assessment & Plan (04/16/2022 2:48 PM WRAPPER SELECTOR): - stable - continue current medication Assessment & Plan (08/25/2021 10:16 AM CDT): - stable - continue current medication Assessment & Plan (03/24/2021 7:56 AM WRAPPER SELECTOR): - stable - continue current medication Assessment & Plan (09/20/2020 8:44 AM CDT): - stable - continue current medication Assessment & Plan (02/09/2020 1:29 PM WRAPPER SELECTOR): - controlled - continue ramapril - could [...] liver enzymes 03/29/2016 Lesion of liver 03/29/2016 Current Treatment and Therapy Plans No current plan information found. Past Treatment and Therapy Plans Oncology Supportive Care Plan Name Start Date Discontinue Date Treatment Medications Discontinue Reason Plan Provider [id number] - [facility] - SURGERY - CE/BZA / PLACEBO 07/02/2018 08/25/2018 INV-[id number] conj estrogens 0.45 MG-bazedoxifene 20 MG/placebo (2016-10-188/NU 15B06) Therapy Complete Aft, Larissa De Jesus MD PhD Radiation Treatments * Course C1_R_Breast_202303/17/2024 - 04/15/2024 Treatment Period Energy Fraction Dose Fractions Total Dose Plans Planned RT BRST BST 04/08/2024 - 04/15/2024 250 6 / 1,500 R_BREAST 03/17/2024 - 04/15/2024 267 15 / 4,005 Reference Points Delivered PTV_1500 04/08/2024 - 04/15/2024 1,500 RT BREAST_4005 03/17/2024 - 04/15/2024 4,005
--- OUTSIDE RECORDS SUMMARY | 2024-04-29 13:52 | XMS_ITS | Clinical Summary ---
Author Organization [facility] Address [address] [place] [address] Care Team Providers Care Watch Inspector Name Role Phone Unavailable Primary Care Provider Unavailabl e Source Comments [facility],non-owned Affiliates and Associated Physician Practices is amultiple site organization consisting of ambulatory clinics and hospital sitesin [place], [place], [place]. This disclosure is being madepursuant to the Care Everywhere program and may not contain all information available regarding this patient. Last updated 17.[facility] Allergies No known active allergies Medications Be aware that medications may not be up to date on this document. Always verify current medications with the patient. No known medications Immunizations Name Administration Dates Next Due TDAP (7yrs+) 2018 iNFLUENZA VACCINE, RECOM-POZO, QUADR. (FLUBLOCK QUADRIVALENT; 18Y+) (RIV4) 12/18/2017 Social History Tobacco Use Types Packs/Day Years Used Date Smoking Tobacco: Never Assessed Sex and Gender Information Value Date Recorded Sex Assigned at Not on file Gender Identity Not on file Sexual Orientation Not on file Plan of Treatment Health Maintenance Due Date Last Done Comments COLOGUARD (AGES 45-75) - COL ON CA SCREENING 1963 COLON MONITORING 1963 COLONOSCOPY - COLON CA SCREENING 1963 CT COLONOGRAPHY - COLON CA SCREENING 1963 Colorectal Cancer Screening 1963 FIT - COLON CA SCREENING 1963 FLEX SIG - COLON CA SCREENING 1963 LIPID TESTING 1963 MAMMOGRAM 1963 PAP SMEAR 1963 HIV SCREENING 08/12/1978 HEPATITIS C SCREENING 08/08/1981 PNEUMOCOCCAL VACCINE 50+ (1 of 1 - PCV) 08/12/2013 ZOSTER VACCINE (1 of 2) 08/12/2013 COVID-19 VACCINE (1 - 2023-2 5 season) 2023 INFLUENZA VACCINE (#1) 2023 12/18/2017 DEPRESSION SCREENING 03/11/2024 DTAP/TDAP/TD VACCINES (2 - T d or Tdap) 2028 2018 Respiratory Syncytial Virus (RSV) Vaccine Pt: or over 60 yrs (1 - 1-dose 75+ series) 08/12/2038 HEPATITIS B VACCINE Aged Out No longe r eligible based on patient's age to complete this topic HIB VACCINE Aged Out No longer eligi ble based on patient's age to complete this topic HPV VACCINE Aged Out No longer eligi ble based on patient's age to complete this topic MENINGOCOCCAL (Group B) VACCINE Aged Out No longer eligible based on patient's age to complete this topic MENINGOCOCCAL VACCINE Aged Out No kassy umm eligible based on patient's age to complete this topic PNEUMOCOCCAL VACCINE Aged Out No long er eligible based on patient's age to complete this topic
--- OUTSIDE RECORDS SUMMARY | 2024-04-29 13:52 | XMS_ITS | Referral Summary ---
Author Organization [facility] Address [address] [place] [address] Care Team Providers Care Second Floor Operator Name Role Phone Unavailable Primary Care Provider Unavailabl e Source Comments [facility],non-owned Affiliates and Associated Physician Practices is amultiple site organization consisting of ambulatory clinics and hospital sitesin [place], [place], [place] and [place]. This disclosure is being madepursuant to the Care Everywhere program and may not contain all information available regarding this patient. Last updated 17.[facility] Allergies No known active allergies Medications Be [...] Orientation Not on file Plan of Treatment Not on file
--- OUTSIDE RECORDS SUMMARY | 2024-04-29 13:52 | XMS_ITS | Clinical Summary ---
Author Organization [facility] Address [address] [place] [address] Care Team Providers Care Control Specialist Name Role Phone Virgilio Aguilera MD Primary Care Provider + Chi Lewis DO Unavailable [phone] Teetee Burch PROCUREMENT ANALYST Unavailable + [phone] Aft, Larissa De Jesus MD PhD Unavailable [phone] Ene Telles MD Unavailable [phone] Jasmine Aguirre MD PhD Unavailable [phone] Allergies No known active allergies Medications multivitamin capsuleIndication s:Vitamin Deficiency Prevention Take 1 capsule by mouth snorkelling instructor before breakfast Active cyanocobalamin (Vitamin B-12) 100 mcg tabletIndications :Prevention of Vitamin B12 Deficiency Take 1 tablet (100 mcg total) by mouth snorkelling instructor before breakfast Active calcium-vits S3-U-N7-minerals 166.75 mg- 166.75 unit capsuleIndication s:supplement Take [...] without long-term current use of insulin (CMS/HCC) ([facility]) Take 1 tablet (500 mg total) by mouth 2 (two) times a day 180 tablet 1 04/13/19 25 Active metFORMIN XR (GLUCOPHAGE XR) 500 mg 24 hr tabletIndications :Controlled type 2 diabetes mellitus without complication, without long-term current use of insulin (CMS/HCC) ([facility]) TAKE 1 TABLET(500 MG) BY MOUTH DAILY [...] 03/24/2024 Assessment & Plan (03/24/2024 3:14 PM PUNCH PRESS SETTER): - unclear etiology - cxr, labs - possible viral or bacterial PNA vs other infection vs reactive airway - tx with steroid, albuterol, empiric abx due to high risk 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] loss Assessment & Plan (03/24/2021 7:55 AM PUNCH PRESS SETTER): - Reviewed with the patient BMI, blood pressure, diet, exercise, and encouraged healthy lifestyle choices. - Screened for high risk behaviors, diet and exercise habits, and symptoms of depression. - check screening labs - encouraged regular exercise and weight loss Moderate episode of recurrent major depressive d isorder 06/21/2020 Assessment & Plan (03/24/2024 2:41 PM PUNCH PRESS SETTER): - stable - continue celexa Assessment & Plan (01/22/2024 9:18 AM PUNCH PRESS SETTER): - stable - continue celexa Assessment & [...] 11/11/2019 Assessment & Plan (03/24/2024 2:40 PM PUNCH PRESS SETTER): - stable - continue celexa Assessment & Plan (01/22/2024 9:18 AM PUNCH PRESS SETTER): - stable - continue celexa Assessment & Plan (07/24/2023 9:05 AM CDT): - stable - continue celexa Assessment & Plan (01/09/2023 9:22 AM CDT): - stable - continue current medication Assessment & Plan (09/10/2022 11:54 AM CDT): - stable - continue current medication Assessment & Plan (03/24/2021 7:55 AM PUNCH PRESS SETTER): - stable - continue current medication Assessment & Plan (09/20/2020 8:44 AM CDT): - stable - continue current medication Assessment & Plan (06/21/2020 7:53 AM CDT): - stable - continue counseling Assessment & Plan (02/09/2020 1:29 PM PUNCH PRESS SETTER): - controlled - d/c celexa - f/u if sx return Assessment & Plan (11/11/2019 2:32 PM CDT): - stable - will decrease celexa to 10mg daily - f/u in 3 mo Class 3 severe obesity due t o excess calories without serious comorbidity with body mass index (BMI) of 40.0 to 44.9 in adult 11/11/2019 Assessment & Plan (03/24/2024 2:40 PM PUNCH PRESS SETTER): - rec healthy diet and regular exercise Assessment & Plan (01/22/2024 9:18 AM PUNCH PRESS SETTER): - rec healthy diet and regular exercise Assessment & Plan (07/24/2023 9:05 AM CDT): - rec healthy diet and regular exercise Assessment & Plan (01/09/2023 9:22 AM CDT): - rec healthy diet and regular exercise Assessment & Plan (09/10/2022 11:54 AM CDT): - rec healthy diet and regular exercise Assessment & Plan (03/24/2021 7:55 AM PUNCH PRESS SETTER): - encouraged healthy diet and regular exercise [...] loss Assessment & Plan (02/09/2020 1:29 PM PUNCH PRESS SETTER): - discussed risks associated with obesity to [...] 06/30/2018 Assessment & Plan (03/24/2021 7:56 AM PUNCH PRESS SETTER): - stable - continue plan per oncology Assessment & Plan (06/21/2020 7:54 AM CDT): - pt to f/u with oncology to discuss rechecking tamoxifen metabolite levels after restarting her citalopram Abnormal findings on diagnostic imaging of aidan t 05/14/2018 Essential hypertension 03/29/2016 Assessment & Plan (03/24/2024 3:14 PM PUNCH PRESS SETTER): - BP slightly high today, continue to monitor - continue ramapril Assessment & Plan (01/22/2024 9:18 AM PUNCH PRESS SETTER): - stable - continue ramipril Assessment & Plan (07/24/2023 9:05 AM CDT): - stable - continue ramipril Assessment & Plan (01/09/2023 9:22 AM CDT): - stable - continue current medication Assessment & Plan (09/10/2022 11:54 AM CDT): - stable - continue current medication Assessment & Plan (04/16/2022 2:48 PM PUNCH PRESS SETTER): - stable - continue current medication Assessment & Plan (08/25/2021 10:16 AM CDT): - stable - continue current medication Assessment & Plan (03/24/2021 7:56 AM PUNCH PRESS SETTER): - stable - continue current medication Assessment & Plan (09/20/2020 8:44 AM CDT): - stable - continue current medication Assessment & Plan (02/09/2020 1:29 PM PUNCH PRESS SETTER): - controlled - continue ramapril - could [...] liver enzymes 03/29/2016 Lesion of liver 03/29/2016 Encounters Date Type Department Care Team Description 04/15/2024 8:00 AM [facility] Medical Office Building 2 Radiation Oncology [address] [place] [phone] Ene Telles MD 04/15/2024 Completion of Therapy [facility] Office Building 2 Radiation Oncology [address] [place] [phone] Ene Telles MD 04/15/2024 Orders Only RAD ONC TREATMENTS Miscellaneous, Not In File 04/15/2024 OTV [facility] Medical Office Building 2 Radiation Oncology [address] [place] [address] [phone] Ene Telles MD Malignant neoplasm of upper-outer quadrant of right breast in female, estrogen receptor positive (HCC) (Primary Dx) 04/15/2024 Orders Only RAD ONC TREATMENTS Miscellaneous, Not In File 04/14/2024 8:00 AM [facility] Office Building 2 Radiation Oncology [address] [place] [phone] 04/14/2024 Orders Only RAD ONC TREATMENTS Miscellaneous, Not In File 04/13/2024 8:00 AM [facility] Medical Office Building 2 Radiation Oncology [address] [place] [phone] 04/13/2024 Orders Only RAD ONC TREATMENTS Miscellaneous, Not In File 04/10/2024 8:00 AM [facility] Office Building 2 Radiation Oncology [address] [place] [phone] 04/10/2024 Orders Only RAD ONC TREATMENTS Miscellaneous, Not In File 04/09/2024 8:00 AM [facility] Office Building 2 Radiation Oncology [address] [place] [phone] 04/09/2024 Orders Only RAD ONC TREATMENTS Miscellaneous, Not In File 04/08/2024 2:15 PM PUNCH PRESS SETTER Office Visit [facility] Oncology [address] [place] [address] [place] [phone] Chi Lewis DO Malignant neoplasm of upper-outer quadrant of right breast in female, estrogen receptor positive (HCC) (Primary Dx); Vitamin D deficiency; penitentiary (current) use of aromatase inhibitors 04/08/2024 8:15 AM [facility] Medical Office Building 2 Radiation Oncology [address] [place] [address] [phone] Ene Telles MD 04/08/2024 8:00 AM [facility] Medical Office Building 2 Radiation Oncology [address] [place] [phone] Fer Napier MD 04/08/2024 Orders Only RAD ONC TREATMENTS Miscellaneous, Not In File 04/07/2024 8:30 AM [facility] Office Building 2 Radiation Oncology [address] [place] [phone] 04/07/2024 O[facility] Medical Office Building 2 Radiation Oncology [address] [place] [phone] Ene Telles MD Malignant neoplasm of upper-outer quadrant of right breast in female, estrogen receptor positive (HCC) (Primary Dx) 04/07/2024 Orders Only RAD ONC TREATMENTS Miscellaneous, Not In File 04/06/2024 8:00 AM [facility] Office Building 2 Radiation Oncology [address] [place] [phone] 04/06/2024 Orders Only RAD ONC TREATMENTS Miscellaneous, Not In File 04/03/2024 8:15 AM [facility] Office Building 2 Radiation Oncology [address] [place] [phone] Ene Telles MD 04/03/2024 8:00 AM [facility] Office Building 2 Radiation Oncology [address] [place] [phone] 04/03/2024 Orders Only RAD ONC TREATMENTS Miscellaneous, Not In File 04/02/2024 8:00 AM [facility] Office Building 2 Radiation Oncology [address] [place] [phone] 04/02/2024 Orders Only RAD ONC TREATMENTS Miscellaneous, Not In File 04/01/2024 2:30 PM PUNCH PRESS SETTER Office Visit [facility] Surgery [facility] Floor [address] [place] [address] Aft, Larissa De Jesus MD PhD Ductal carcinoma in situ of right breast (Primary Dx) 04/01/2024 8:00 AM [facility] Medical Office Building 2 Radiation Oncology [address] [place] [phone] 04/01/2024 [facility] Medical Office Building 2 Radiation Oncology [address] [place] [address] Ene Telles MD Malignant neoplasm of upper-outer quadrant of right breast in female, estrogen receptor positive (HCC) (Primary Dx) 04/01/2024 Orders Only RAD ONC TREATMENTS Miscellaneous, Not In File 03/31/2024 8:00 AM [facility] Office Building 2 Radiation Oncology [address] [place] [phone] 03/31/2024 Orders Only RAD ONC TREATMENTS Miscellaneous, Not In File 03/30/2024 8:00 AM [facility] Office Building 2 Radiation Oncology [address] [place] [address] 03/30/2024 Orders Only RAD ONC TREATMENTS Miscellaneous, Not In File 03/27/2024 8:00 AM [facility] Office Building 2 Radiation Oncology [address] [place] [address] 03/27/2024 Orders Only RAD ONC TREATMENTS Miscellaneous, Not In File 03/26/2024 8:00 AM PUNCH PRESS SETTER [facility] Medical Office Building 2 Radiation Oncology [address] [place] [phone] 03/26/2024 Orders Only RAD ONC TREATMENTS Miscellaneous, Not In File 03/25/2024 8:00 AM PUNCH PRESS SETTER [facility] Medical Office Building 2 Radiation Oncology [address] [place] [phone] 03/25/2024 Orders Only RAD ONC TREATMENTS Miscellaneous, Not In File 03/24/2024 3:00 PM PUNCH PRESS SETTER Lab [facility] Medical Office Building [address] [place] [phone] Shortness of breath 03/24/2024 2:41 PM PUNCH PRESS SETTER - 03/24/2024 11:59 PM [facility] MOB 1 DIAG IMG [address] [place] [address] [phone] Shortness of breath Discharge Disposition: Discharge to home or self care 03/24/2024 2:30 PM PUNCH PRESS SETTER Office Visit [facility] Primary Care [address] [place] [phone] Virgilio Aguilera MD Shortness of breath (Primary Dx); Essential hypertension; JACKIE (generalized anxiety disorder); Moderate episode of recurrent major depressive disorder (HCC); Class 3 severe obesity due to excess calories without serious comorbidity with body mass index (BMI) of 40.0 to 44.9 in adult (HCC) 03/24/2024 8:00 AM PUNCH PRESS SETTER [facility] Medical Office Building 2 Radiation Oncology [address] [place] [phone] 03/24/2024 Nurse Triage [facility] Primary Care [address] [place] [phone] Virgilio Aguilera MD 03/24/2024 O[facility] Medical Office Building 2 Radiation Oncology [address] [place] [phone] Xavier Corbett MD 03/24/2024 Orders Only RAD ONC TREATMENTS Miscellaneous, Not In File 03/23/2024 8:00 AM PUNCH PRESS SETTER Treatment [facility] Medical Office Building 2 Radiation Oncology [address] [place] [address] 401[address] 03/23/2024 Orders Only RAD ONC TREATMENTS Miscellaneous, Not In File 03/20/2024 Telephone [facility] Medical Office Building 2 Radiation Oncology [address] [place] [phone] Teetee Pathak MA 03/19/2024 8:00 AM [facility] Treatment [facility] Medical Office Building 2 Radiation Oncology [address] [place] [phone] 03/19/2024 Orders Only RAD ONC TREATMENTS Miscellaneous, Not In File 03/18/2024 8:00 AM [facility] Medical Office Building 2 Radiation Oncology [address] [place] [phone] 03/18/2024 O[facility] Office Building 2 Radiation Oncology [address] [place] [address] Ene Telles MD Malignant neoplasm of upper-outer quadrant of right breast in female, estrogen receptor positive (HCC) (Primary Dx) 03/18/2024 Orders Only RAD ONC TREATMENTS Miscellaneous, Not In File 03/17/2024 10:30 AM [facility] Clinical Support [facility] Office Building 2 Radiation Oncology [address] [place] [phone] Ductal carcinoma in situ (DCIS) of right breast (Primary Dx); Controlled type 2 diabetes mellitus without complication, without long-term current use of insulin (CMS/HCC) (HCC); Class 3 severe obesity due to excess calories without serious comorbidity with body mass index (BMI) of 40.0 to 44.9 in adult (HCC); Malignant neoplasm of upper-outer quadrant of right breast in female, estrogen receptor positive (HCC) 03/17/2024 10:30 AM [facility] Office Building 2 Radiation Oncology [address] [place] [phone] Ene Telles MD 03/17/2024 10:15 AM [facility] Medical Office Building 2 Radiation Oncology [address] [place] [address] 57428 Ene Telles MD 03/17/2024 Orders Only RAD ONC TREATMENTS Miscellaneous, Not In File 03/09/2024 7:30 PM PUNCH PRESS SETTER Treatment [facility] Medical Office Building 2 Radiation Oncology [address] [place] [address] [phone] 02/26/2024 2:30 PM PUNCH PRESS SETTER Treatment [facility] Medical Office Building 2 Radiation Oncology [address] [place] [address] [phone] Ene Telles MD 02/26/2024 2:00 PM PUNCH PRESS SETTER Office Visit [facility] Medical Office Building 2 Radiation Oncology [address] [place] [phone] Ene Telles MD Malignant neoplasm of upper-outer quadrant of right breast in female, estrogen receptor positive (HCC) (Primary Dx) 01/29/2024 3:00 PM PUNCH PRESS SETTER Office Visit [facility] Surgery [address] [facility] Floor [address] [place] [address] Aft, Larissa De Jesus MD PhD Malignant neoplasm of upper-outer quadrant of right breast in female, estrogen receptor positive (HCC) (Primary Dx) from Last 3 Months Immunizations Immunization Administration Dates Next Due Influenza, [...] YRS) 01/16/2021,06/02/2020,05/05/2020 Tdap 09/20/2020 ZOSTER Recombinant 01/24/2020,11/24/2019 Surgical History Surgery Date Site/Laterality Comments OR APPENDECTOMY 03/11/1977 - 03/10/1978 Appendectomy - (Added by TW Conv) OR DELIVERY ONLY 03/11/1990 - 03/10/1991 Section - (Added by TW Conv) BREAST BIOPSY 06/04/2018 Right BREAST BIOPSY 06/20/2018 Right COLONOSCOPY BREAST BIOPSY 12/04/2023 Right MASTECTOMY, PARTIAL 03/11/2018 - 03/10/2019 Right Medical History Medical History Date Comments Hypertension Breast cancer (HCC) right breast Diabetes (HCC) Overweight DCIS (ductal carcinoma in situ) Family History Medical History Relation Name Comments Multiple sclerosis Father Family hi story of multiple sclerosis - (Added by TW Conv) Prostate cancer Maternal Grandfather Colon cancer Maternal Grandmother Hypertension Mother Luba [place] Family hist ory of hypertension - (Added by TW Conv) Prostate cancer Paternal Grandfather Liver cancer Paternal Grandmother Hypertension Sister Brianna [place] Family histo ry of hypertension - (Added by TW Conv) Anesthesia problems Neg Hx Breast cancer Neg Hx Ovarian cancer Neg Hx Uterine cancer Neg Hx Relation Name Status Comments Father (Age 74) [place] Maternal Grandfather Maternal Grandmother Mother Luba [place] Alive Paternal Grandfather Paternal Grandmother Sister Brianna newby Social History Tobacco Use Types Packs/Day Years [...] on file Legal Sex Female 12:55 AM PUNCH PRESS SETTER Gender Identity Female 01/19/2021 11:00 AM PUNCH PRESS SETTER Sexual Orientation Straight 01/19/2021 11 :00 AM PUNCH PRESS SETTER 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 [employer] Not on file Not on file Not on file Obstetrics History Para Term AB IAB SAB Ectopic Multiple Livin g Live Births 2 2 2 2 2 Date Outcome GA Total Labor Labor/2nd/3rd Weight Sex Type Anes PTL Arely A1 A5 Name Clin Term Term Comments Last Filed Vital Signs Vital Sign Reading Time Taken Comments Blood Pressure 157/96 04/15/2024 8:25 AM PUNCH PRESS SETTER Pulse 109 04/15/2024 8:25 AM PUNCH PRESS SETTER Temperature 36.4 C (97.5 F) 04/08/2024 1:47 PM PUNCH PRESS SETTER Respiratory Rate 14 04/08/2024 1:47 PM PUNCH PRESS SETTER Oxygen Saturation 100% 04/15/2024 8:25 AM PUNCH PRESS SETTER Inhaled Oxygen Concentration - - Weight 128.1 kg (282 lb 6.4 oz) 04/15/2024 8:25 AM PUNCH PRESS SETTER Height 177.8 cm (5' 10 ) 04/08/2024 1:47 PM PUNCH PRESS SETTER Body Mass Index 40.52 04/08/2024 1:47 PM PUNCH PRESS SETTER Plan of Treatment Health Maintenance Due Date Last Done Comments Hepatitis C Screening 1965 Foot Exam 1965 Hepatitis B Screening 08/12/1981 Pneumococcal vaccine <65 (1 of 2 - PCV) 08/12/1982 Covid-19 Vaccine (7 - Modern a risk ) 06/17/2024 12/18/2023, 12/23/2022, 01/15/2022, Additional history exists Hemoglobin A1C 07/21/2024 01/22/2024, 0507/2023, 01/09/2023, Additional history exists Breast Cancer Screening-Mammogram 11/06/2024 11/07/2023, 11/01/2022, 10/18/2021, Additional history exists Albumin Creatinine Ratio, Urine 01/19/2025 , 12/12/2022 Lipid Panel 01/19/2025 01/20/2024, 07/2 08/2022, 04/03/2021, Additional history exists Depression Screening 01/21/2025 01/22/2024, 09/10/2022, 04/16/2022, Additional history exists Cervical Cancer Screening 01/26/20252023, 01/27/2024, 12/09/2019 Regular Well Visit/Exam 18-64 01/26/2025, 01/22/2024, 09/10/2022, Additional history exists Dilated Eye Exam 02/07/2025 02/07/2023 eGFR 03/24/2025 03/24/2024, 01/09, 07/19/2023, Additional history exists Colon Cancer Screening-Colonoscopy 01/23/2029 01/23/2019, 12/30/2013 DTaP/Tdap/Td Vaccine (2 - Td or Tdap) 09/20/2030 09/20/2020 Colon Cancer Screening-CT Colonography Discontinued 01/23/2019, 12/30/2013 Colon Cancer Screening-DNA Stool Discontinued 01/24/20 19, 12/30/2013 Colon Cancer Screening-FIT Discontinued 01/23/2019, Colon Cancer Screening-Sigmoidoscopy Discontinued 01/23/2019, 12/30/2013 Zoster Vaccine Completed 01/24/2020, 11/24/2019 Influenza Vaccine Completed 12/18/2023, , 12/20/2021, Additional history exists Medical Devices Implanted Type Area Vp Product Management Device Identifier Shelf Expiration Date Model / Serial / Lot Bard Peripheral Vascular Ultraclip Bard 17ga 10cm 2 Trigger Permanent Ultrasound [id number] - [id number] Implanted:Qty: 1 on 12/04/2023 by Lily Olea MD at [facility] Right: Breast [employer] [id number] / / Bard Peripheral [employer] Ghiatas 20ga 20cm 7cm Beaded Barbed Needle Breast Wire [id number] - [id number] Implanted:Qty: 2 on 01/14/2024 at [facility] [employer] [id number] / / Procedures Procedure Name Priority Date/Time Associated Diagnosis Comments RAD ONC ARIA COURSE SUMMARY 04/15/2024 3:10 PM PUNCH PRESS SETTER RAD ONC ARIA SESSION SUMMARY 04/15/2024 8:17 AM PUNCH PRESS SETTER RAD ONC ARIA SESSION SUMMARY 04/14/2024 8:07 AM PUNCH PRESS SETTER RAD ONC ARIA SESSION SUMMARY 04/13/2024 7:57 AM PUNCH PRESS SETTER RAD ONC ARIA SESSION SUMMARY 04/10/2024 8:10 AM PUNCH PRESS SETTER RAD ONC ARIA SESSION SUMMARY 04/09/2024 8:06 AM PUNCH PRESS SETTER RAD ONC ARIA SESSION SUMMARY 04/08/2024 8:36 AM PUNCH PRESS SETTER RAD ONC ARIA SESSION SUMMARY 04/07/2024 8:42 AM PUNCH PRESS SETTER RAD ONC ARIA SESSION SUMMARY 04/06/2024 8:22 AM PUNCH PRESS SETTER RAD ONC ARIA SESSION SUMMARY 04/03/2024 8:13 AM PUNCH PRESS SETTER RAD ONC ARIA SESSION SUMMARY 04/02/2024 8:15 AM PUNCH PRESS SETTER RAD ONC ARIA SESSION SUMMARY 04/01/2024 8:17 AM PUNCH PRESS SETTER RAD ONC ARIA SESSION SUMMARY 03/31/2024 8:17 AM PUNCH PRESS SETTER RAD ONC ARIA SESSION SUMMARY 03/30/2024 8:00 AM PUNCH PRESS SETTER RAD ONC ARIA SESSION SUMMARY 03/27/2024 8:03 AM PUNCH PRESS SETTER RAD ONC ARIA SESSION SUMMARY 03/26/2024 8:16 AM PUNCH PRESS SETTER RAD ONC ARIA SESSION SUMMARY 03/25/2024 8:11 AM PUNCH PRESS SETTER EGFR Routine 03/24/2024 2:58 PM PUNCH PRESS SETTER Shortness of breath MANUAL DIFFERENTIAL Routine 03/24/2024 2 :58 PM PUNCH PRESS SETTER Shortness of breath DIFFERENTIAL AUTO Routine 03/24/2024 2:5 8 PM PUNCH PRESS SETTER Shortness of breath CBC WITH AUTO DIFFERENTIAL Routine 03/24/2024 2:58 PM PUNCH PRESS SETTER Shortness of breath COMPREHENSIVE METABOLIC PANEL Routine 03/24/2024 2:58 PM PUNCH PRESS SETTER Shortness of breath CRP (ACUTE PHASE) Routine 03/24/2024 2:5 8 PM PUNCH PRESS SETTER Shortness of breath XR CHEST PA LATERAL 2 VIEWS Schedule MICHAEL, Read MICHAEL (Appt Today, Awaiting Results) 03/24/2024 2:45 PM PUNCH PRESS SETTER Shortness of breath RAD ONC ARIA SESSION SUMMARY 03/24/2024 8:21 AM PUNCH PRESS SETTER RAD ONC ARIA SESSION SUMMARY 03/23/2024 8:08 AM PUNCH PRESS SETTER RAD ONC ARIA SESSION SUMMARY 03/19/2024 8:05 AM PUNCH PRESS SETTER RAD ONC ARIA SESSION SUMMARY 03/18/2024 8:15 AM PUNCH PRESS SETTER RAD ONC ARIA SESSION SUMMARY 03/17/2024 10:31 AM PUNCH PRESS SETTER HIGH RISK HPV DNA DETECTION WITH GENOTYPING Routine 01/27/2024 10:50 AM PUNCH PRESS SETTER Pap smear for cervical cancer screening Well woman exam with routine gynecological exam POCT HEMOGLOBIN A1C Routine 01/22/2024 9 :06 AM PUNCH PRESS SETTER Controlled type 2 diabetes mellitus without complication, without long-term current use of insulin (CMS/HCC) (HCC) LIPID PANEL Routine 01/20/2024 8:47 AM PUNCH PRESS SETTER Controlled type 2 diabetes mellitus without complication, without long-term current use of insulin (CMS/HCC) (HCC) ALBUMIN CREATININE RATIO, URINE Routine 01/20/2024 8:47 AM PUNCH PRESS SETTER Controlled type 2 diabetes mellitus without complication, [...] ONC ARIA COURSE SUMMARY (04/15/2024 3:10 PM PUNCH PRESS SETTER) Course Name [id number] ARIA Course Plan Date [...] Dose (cGy) 4,005 ARIA 04/15/2024 3:10 PM PUNCH PRESS SETTER us Not In File Miscellaneous RADIATION ONCOLOGY ORD ERABLES Final Result ARIA * RAD ONC ARIA SESSION SUMMARY (04/15/2024 8:17 AM PUNCH PRESS SETTER) Course Name [email or web address] ARIA Course Plan Date 02/26/2024 3:30 PM ARIA Elapsed Days 29 ARIA Treatment Start Date 03/17/2024 ARIA Treatment Site [id number] ARIA Dose Given To Date (cGy) 1,500 ARIA Session Dosage Given (cGy) 250 ARIA Plan ID RT BRST BST ARIA Fractions Treated 6 ARIA Prescribed Dose Per Fraction (cGy) 250 ARIA Prescribed Total Dose (cGy) 1,500 ARIA 04/15/2024 8:17 AM PUNCH PRESS SETTER us Not In File Miscellaneous RADIATION ONCOLOGY ORD ERABLES Final Result Performing Organization Address City/[facility]/ZIP Co de Phone Number HOLYL Benites RAD ONC ARIA SESSION SUMMARY (04/14/2024 8:07 AM PUNCH PRESS SETTER) Course Name C1_R_Breas t_2023 ARIA Course Plan Date 02/26/2024 3:30 PM ARIA Elapsed Days 28 ARIA Treatment Start Date 03/17/2024 ARIA Treatment Site PTV_1500 ARIA Dose Given To Date (cGy) 1,250 ARIA Session Dosage Given (cGy) 250 ARIA Plan ID RT BRST BST ARIA Fractions Treated 5 ARIA Prescribed Dose Per Fraction (cGy) 250 ARIA Prescribed Total Dose (cGy) 1,500 ARIA 04/14/2024 8:07 AM PUNCH PRESS SETTER us Not In File Miscellaneous RADIATION ONCOLOGY ORD ERABLES Final Result Performing Organization Address [facility] Co de Phone Number HOLLY PRAKASH ONC ARIA SESSION SUMMARY (04/13/2024 7:57 AM PUNCH PRESS SETTER) Course Name C1_R_Breas ARIA Course Plan Date 02/26/2024 3:30 PM ARIA Elapsed Days 27 ARIA Treatment Start Date 03/17/2024 ARIA Treatment Site PTV_1500 ARIA Dose Given To Date (cGy) 1,000 ARIA Session Dosage Given (cGy) 250 ARIA Plan ID RT BRST BST ARIA Fractions Treated 4 ARIA Prescribed Dose Per Fraction (cGy) 250 ARIA Prescribed Total Dose (cGy) 1,500 ARIA 04/13/2024 7:57 AM PUNCH PRESS SETTER us Not In File Miscellaneous RADIATION ONCOLOGY ORD ERABLES Final Result HOLLY * RAD ONC ARIA SESSION SUMMARY (04/10/2024 8:10 AM PUNCH PRESS SETTER) Course Name C1_RWilliam ARIA Course Plan Date 02/26/2024 3:30 PM ARIA Elapsed Days 24 ARIA Treatment Start Date 03/17/2024 ARIA Treatment Site PTV_1500 ARIA Dose Given To Date (cGy) 750 ARIA Session Dosage Given (cGy) 250 ARIA Plan ID RT BRST BST ARIA Fractions Treated 3 ARIA Prescribed Dose Per Fraction (cGy) 250 ARIA Prescribed Total Dose (cGy) 1,500 ARIA 04/10/2024 8:10 AM PUNCH PRESS SETTER us Not In File Miscellaneous RADIATION ONCOLOGY ORD ERABLES Final Result Performing Organization Address [facility] Co de Phone Number HOLLY * RAD ONC ARIA SESSION SUMMARY (04/09/2024 8:06 AM PUNCH PRESS SETTER) Course Name C1_R_Breas ARIA Course Plan Date 02/26/2024 3:30 PM ARIA Elapsed Days 23 ARIA Treatment Start Date 03/17/2024 ARIA Treatment Site PTV_1500 ARIA Dose Given To Date (cGy) 500 ARIA Session Dosage Given (cGy) 250 ARIA Plan ID RT BRST BST ARIA Fractions Treated 2 ARIA Prescribed Dose Per Fraction (cGy) 250 ARIA Prescribed Total Dose (cGy) 1,500 ARIA 04/09/2024 8:06 AM PUNCH PRESS SETTER us Not In File Miscellaneous RADIATION ONCOLOGY ORD ERABLES Final Result HOLLY * RAD ONC ARIA SESSION SUMMARY (04/08/2024 8:36 AM PUNCH PRESS SETTER) Course Name C1_RLorraineBreas ARIA Course Plan Date 02/26/2024 3:30 PM ARIA Elapsed Days 22 ARIA Treatment Start Date 03/17/2024 ARIA Treatment Site PTV_1500 ARIA Dose Given To Date (cGy) 250 ARIA Session Dosage Given (cGy) 250 ARIA Plan ID RT BRST BST ARIA Fractions Treated 1 ARIA Prescribed Dose Per Fraction (cGy) 250 ARIA Prescribed Total Dose (cGy) 1,500 ARIA 04/08/2024 8:36 AM PUNCH PRESS SETTER us Not In File Miscellaneous RADIATION ONCOLOGY ORD ERABLES Final Result Performing Organization Address [facility] Co de Phone Number ARIA * RAD ONC ARIA SESSION SUMMARY (04/07/2024 8:42 AM PUNCH PRESS SETTER) Course Name C1_R_Aidan ARIA Course Plan Date 02/26/2024 3:30 PM ARIA Elapsed Days 21 ARIA Treatment Start Date 03/17/2024 ARIA Treatment Site RT BREAST_400 5 ARIA Dose Given To Date (cGy) 4,005 ARIA Session Dosage Given (cGy) 267 ARIA Plan ID R_BREAST ARIA Fractions Treated 15 ARIA Prescribed Dose Per Fraction (cGy) 267 ARIA Prescribed Total Dose (cGy) 4,005 ARIA 04/07/2024 8:42 AM PUNCH PRESS SETTER us Not In File Miscellaneous RADIATION ONCOLOGY ORD ERABLES Final Result Performing Organization Address [facility] de Phone Number ARIA * RAD ONC ARIA SESSION SUMMARY (04/06/2024 8:22 AM PUNCH PRESS SETTER) Course Name C1_R_Aidan ARIA Course Plan Date 02/26/2024 3:30 PM ARIA Elapsed Days 20 ARIA Treatment Start Date 03/17/2024 ARIA Treatment Site RT BREAST_400 5 ARIA Dose Given To Date (cGy) 3,738 ARIA Session Dosage Given (cGy) 267 ARIA Plan ID R_BREAST ARIA Fractions Treated 14 ARIA Prescribed Dose Per Fraction (cGy) 267 ARIA Prescribed Total Dose (cGy) 4,005 ARIA 04/06/2024 8:22 AM PUNCH PRESS SETTER us Not In File Miscellaneous RADIATION ONCOLOGY ORD ERABLES Final Result ARIA * RAD ONC ARIA SESSION SUMMARY (04/03/2024 8:13 AM PUNCH PRESS SETTER) Course Name C1_RWilliam ARIA Course Plan Date 02/26/2024 3:30 PM ARIA Elapsed Days 17 ARIA Treatment Start Date 03/17/2024 ARIA Treatment Site RT BREAST_400 5 ARIA Dose Given To Date (cGy) 3,471 ARIA Session Dosage Given (cGy) 267 ARIA Plan ID R_BREAST ARIA Fractions Treated 13 ARIA Prescribed Dose Per Fraction (cGy) 267 ARIA Prescribed Total Dose (cGy) 4,005 ARIA 04/03/2024 8:13 AM PUNCH PRESS SETTER us Not In File Miscellaneous RADIATION ONCOLOGY ORD ERABLES Final Result Performing Organization Address [facility] de Phone Number ARIA * RAD ONC ARIA SESSION SUMMARY (04/02/2024 8:15 AM PUNCH PRESS SETTER) Course Name C1_RWilliam ARIA Course Plan Date 02/26/2024 3:30 PM ARIA Elapsed Days 16 ARIA Treatment Start Date 03/17/2024 ARIA Treatment Site RT BREAST_400 5 ARIA Dose Given To Date (cGy) 3,204 ARIA Session Dosage Given (cGy) 267 ARIA Plan ID R_BREAST ARIA Fractions Treated 12 ARIA Prescribed Dose Per Fraction (cGy) 267 ARIA Prescribed Total Dose (cGy) 4,005 ARIA 04/02/2024 8:15 AM PUNCH PRESS SETTER us Not In File Miscellaneous RADIATION ONCOLOGY ORD ERABLES Final Result Performing Organization Address [facility] Co de Phone Number ARIA * RAD ONC ARIA SESSION SUMMARY (04/01/2024 8:17 AM PUNCH PRESS SETTER) Course Name C1_R_ ARIA Course Plan Date 02/26/2024 3:30 PM ARIA Elapsed Days 15 ARIA Treatment Start Date 03/17/2024 ARIA Treatment Site RT BREAST_400 5 ARIA Dose Given To Date (cGy) 2,937 ARIA Session Dosage Given (cGy) 267 ARIA Plan ID R_BREAST ARIA Fractions Treated 11 ARIA Prescribed Dose Per Fraction (cGy) 267 ARIA Prescribed Total Dose (cGy) 4,005 ARIA 04/01/2024 8:17 AM PUNCH PRESS SETTER us Not In File Miscellaneous RADIATION ONCOLOGY ORD ERABLES Final Result Performing Organization Address City/[facility]/ZIP Co de Phone Number ROSALVAA * RAD ONC ARIA SESSION SUMMARY (03/31/2024 8:17 AM PUNCH PRESS SETTER) Course Name C1_R_Breas ARIA Course Plan Date 02/26/2024 3:30 PM ARIA Elapsed Days 14 ARIA Treatment Start Date 03/17/2024 ARIA Treatment Site RT BREAST_400 5 ARIA Dose Given To Date (cGy) 2,670 ARIA Session Dosage Given (cGy) 267 ARIA Plan ID R_BREAST ARIA Fractions Treated 10 ARIA Prescribed Dose Per Fraction (cGy) 267 ARIA Prescribed Total Dose (cGy) 4,005 ARIA 03/31/2024 8:17 AM PUNCH PRESS SETTER us Not In File Miscellaneous RADIATION ONCOLOGY ORD ERABLES Final Result ARIA * RAD ONC ARIA SESSION SUMMARY (03/30/2024 8:00 AM PUNCH PRESS SETTER) Course Name C1_R_Breas ARIA Course Plan Date 02/26/2024 3:30 PM ARIA Elapsed Days 13 ARIA Treatment Start Date 03/17/2024 ARIA Treatment Site RT BREAST_400 5 ARIA Dose Given To Date (cGy) 2,403 ARIA Session Dosage Given (cGy) 267 ARIA Plan ID R_BREAST ARIA Fractions Treated 9 ARIA Prescribed Dose Per Fraction (cGy) 267 ARIA Prescribed Total Dose (cGy) 4,005 ARIA 03/30/2024 8:00 AM PUNCH PRESS SETTER us Not In File Miscellaneous RADIATION ONCOLOGY ORD ERABLES Final Result HOLLY * RAD ONC ARIA SESSION SUMMARY (03/27/2024 8:03 AM PUNCH PRESS SETTER) Course Name C1_R_Brenichole ARIA Course Plan Date 02/26/2024 3:30 PM ARIA Elapsed Days 10 ARIA Treatment Start Date 03/17/2024 ARIA Treatment Site RT BREAST_400 5 ARIA Dose Given To Date (cGy) 2,136 ARIA Session Dosage Given (cGy) 267 ARIA Plan ID R_BREAST ARIA Fractions Treated 8 ARIA Prescribed Dose Per Fraction (cGy) 267 ARIA Prescribed Total Dose (cGy) 4,005 ARIA 03/27/2024 8:03 AM PUNCH PRESS SETTER us Not In File Miscellaneous RADIATION ONCOLOGY ORD ERABLES Final Result Performing Organization Address City/[facility] Co de Phone Number ARICharline * RAD ONC ARIA SESSION SUMMARY (03/26/2024 8:16 AM PUNCH PRESS SETTER) Course Name C1_RWilliam ARIA Course Plan Date 02/26/2024 3:30 PM ARIA Elapsed Days 9 ARIA Treatment Start Date 03/17/2024 ARIA Treatment Site RT BREAST_400 5 ARIA Dose Given To Date (cGy) 1,869 ARIA Session Dosage Given (cGy) 267 ARIA Plan ID R_BREAST ARIA Fractions Treated 7 ARIA Prescribed Dose Per Fraction (cGy) 267 ARIA Prescribed Total Dose (cGy) 4,005 ARIA 03/26/2024 8:16 AM PUNCH PRESS SETTER us Not In File Miscellaneous RADIATION ONCOLOGY ORD ERABLES Final Result ROSALVAA * RAD ONC ARIA SESSION SUMMARY (03/25/2024 8:11 AM PUNCH PRESS SETTER) Course Name Gwendolyn t_2023 ARIA Course Plan Date 02/26/2024 3:30 PM ARIA Elapsed Days 8 ARIA Treatment Start Date 03/17/2024 ARIA Treatment Site RT BREAST_400 5 ARIA Dose Given To Date (cGy) 1,602 ARIA Session Dosage Given (cGy) 267 ARIA Plan ID R_BREAST ARIA Fractions Treated 6 ARIA Prescribed Dose Per Fraction (cGy) 267 ARIA Prescribed Total Dose (cGy) 4,005 ARIA 03/25/2024 8:11 AM PUNCH PRESS SETTER us Not In File Miscellaneous RADIATION ONCOLOGY ORD ERABLES Final Result HOLLY * (ABNORMAL) eGFR (03/24/2024 2:58 PM PUNCH PRESS SETTER) eGFR 52(L) >=60 mL/min/1. 73 m2 Comment: [...] was last reviewed 2021. Testing performed by: [facility], [address] [place] [address]., [address] Blood 03/24/2024 2:58 PM PUNCH PRESS SETTER 03/24/2024 4:41 PM PUNCH PRESS SETTER us Virgilio Aguilera MD LAB BLOOD ORDERABLES Fin al Result ELLIOTT [address] [facility] Department [place] [address] * Differential, auto (03/24/2024 2:58 PM PUNCH PRESS SETTER) Neutrophil abs 2.7 1.5 - 6.5 K/cumm Comment:Testing performed by : [address] [address] Imm gran abs 0.0 0.0 - 0.1 K/cumm ELLIOTT Comment:Testing performed by : [address] [address] Lymphocyte abs 1.8 0.8 - 3.3 K/cumm ELLIOTT Comment:Testing performed by : [address] [address] Monocyte abs 0.6 0.2 - 0.8 K/cumm ELLIOTT Comment:Testing performed by : [address] [address] Eosinophil abs 0.0 0.0 - 0.5 K/cumm ELLIOTT Comment:Testing performed by : [address] [address] Basophil abs 0.0 0.0 - 0.1 K/cumm ELLIOTT Comment:Testing performed by : [address] [address] Neutrophil pct 52.0 % ELLIOTT Comment: Interpretive Data Percent cell count reference ranges are not reported, since discordance with absolute values may lead to misinterpretation of CBC data. Current Interpretive Data was last revised on 2017. Testing performed by: [address] [address] Imm gran pct 0.2 % ELLIOTT Comment: Interpretive Data Percent cell count reference ranges are not reported, since discordance with absolute values may lead to misinterpretation of CBC data. Current Interpretive Data was last revised on 2017. Testing performed by: [address] [address] Lymphocyte pct 35.1 % ELLIOTT Comment: Interpretive Data Percent cell count reference ranges are not reported, since discordance with absolute values may lead to misinterpretation of CBC data. Current Interpretive Data was last revised on 2017. Testing performed by: [address] [address] Monocyte pct 11.5 % ELLIOTT Comment: Interpretive Data Percent cell count reference ranges are not reported, since discordance with absolute values may lead to misinterpretation of CBC data. Current Interpretive Data was last revised on 2017. Testing performed by: [address] [address] Eosinophil pct 0.8 % ELLIOTT Comment: Interpretive Data Percent cell count reference ranges are not reported, since discordance with absolute values may lead to misinterpretation of CBC data. Current Interpretive Data was last revised on 2017. Testing performed by: [address] [address] Basophil pct 0.4 % ELLIOTT Comment: Interpretive Data Percent cell count reference ranges are not reported, since discordance with absolute values may lead to misinterpretation of CBC data. Current Interpretive Data was last revised on 2017. Testing performed by: [address] [address] Blood 03/24/2024 2:58 PM PUNCH PRESS SETTER 03/24/2024 4:46 PM PUNCH PRESS SETTER us Virgilio Aguilera MD LAB BLOOD ORDERABLES Fin al Result ELLIOTT [address] [facility] Department of Laboratories [place], [place] [id number] * (ABNORMAL) CBC with auto differential (03/24/2024 2:58 PM PUNCH PRESS SETTER) WBC 5.2 3.8 - 9.9 K/cumm Comment:Testing performed by : [address] [address] Hgb 11.1(L) 11.9 - 15.5 g/dL ELLIOTT Comment:Testing performed by : [address] [address] Hct 34.6(L) 35.6 - 45.5 % ELLIOTT Comment:Testing performed by : [address] [address] Plt 233 150 - 400 K/cumm ELLIOTT Comment:Testing performed by : [address] [address] MPV 10.2 9.1 - 12.3 fL ELLIOTT Comment:Testing performed by : [address] [address] RBC 3.93 3.90 - 5.20 M/cumm ELLIOTT Comment:Testing performed by : [address], [address] MCV 88.0 81.3 - 96.4 fL ELLIOTT Comment:Testing performed by : [address] [address] MCH 28.2 27.1 - 33.3 pg ELLIOTT Comment:Testing performed by : [address] [address] MCHC 32.1(L) 32.3 - 35.7 g/dL ELLIOTT Comment:Testing performed by : [address], [address] RDW CV 14.6 11.1 - 14.9 % ELLIOTT Comment:Testing performed by : [address], [address] RDW SD 47.1 35.7 - 48.1 fL ELLIOTT Comment:Testing performed by : [address] [address] NRBC abs 0.00 0.00 - 0.01 K/cumm ELLIOTT Comment:Testing performed by : [address], [address] Blood 03/24/2024 2:58 PM PUNCH PRESS SETTER 03/24/2024 4:46 PM PUNCH PRESS SETTER us Virgilio Aguilera MD LAB BLOOD ORDERABLES Flavio drake Result - Final Performing Organization Address [facility] Co de Phone Number ANNA[address] [place] [employer] [place] [address] * Manual Differential (03/24/2024 2:58 PM PUNCH PRESS SETTER) [facility] Differential Auto Comment:Testing performed by : [address] [address] RBC morphology Consistent with RBC Indicies ELLIOTT Comment:Testing performed by : [address] [address] Platelet estimate Adequate ELLIOTT SANTANA Comment:Testing performed by : [address] [address] Blood 03/24/2024 2:58 PM PUNCH PRESS SETTER 03/24/2024 4:46 PM PUNCH PRESS SETTER Virgilio Aguilera MD LAB BLOOD ORDERABLES Fin al Result Performing Organization Address [facility] Co de Phone Number ANNA[address] [place] [place] [address] * (ABNORMAL) CRP (acute phase) (03/24/2024 2:58 PM PUNCH PRESS SETTER) [facility] CRP 49.1(H) <=10.0 mg/L Comment:Testing performed by : [address] [address] Blood 03/24/2024 2:58 PM PUNCH PRESS SETTER 03/24/2024 4:41 PM PUNCH PRESS SETTER Virgilio Aguilera MD LAB BLOOD ORDERABLES Fin al Result Performing Organization Address City/[facility] Co de Phone Number [address] [address] * (ABNORMAL) Comprehensive metabolic panel (03/24/2024 2:58 PM PUNCH PRESS SETTER) [facility] Sodium 139 135 - 145 mmol/L Comment:Testing performed by : [address] [address] Potassium, pl 3.9 3.3 - 4.9 mmol/L [facility] Comment:Testing performed by : [address] [address] Chloride 104 97 - 110 mmol/L ELLIOTT Comment:Testing performed by : [address], [place]., [address] CO2 24 22 - 32 mmol/L ELLIOTT Comment:Testing performed by : [address] [address] Anion gap 11 2 - 15 mmol/L [facility] Comment:Testing performed by : [address], [place]., [address] BUN 23 6 - 25 mg/dL [facility] Comment:Testing performed by : [address] [address] Creatinine 1.20(H) 0.60 - 1.10 mg/dL [facility] Comment:Testing performed by : [address] [address] Glucose 113 70 - 199 mg/dL [facility] Comment: Interpretive Data Fasting glucose >/= 126 [...] was last revised 2022. Testing performed by: [address] [address] Calcium 9.4 8.5 - 10.3 mg/dL ELLIOTT Comment:Testing performed by : [address] [address] Bilirubin, total 0.2 0.1 - 1.2 mg/dL ELLIOTT Comment:Testing performed by : [address] [address] Protein, pl 7.8 6.5 - 8.5 g/dL ELLIOTT Comment:Testing performed by : [address] [address] Albumin 4.2 3.5 - 5.0 g/dL ELLIOTT Comment:Testing performed by : [address] [address] Alk phos 62 40 - 130 Units/L ELLIOTT Comment:Testing performed by : [address] [address] ALT 26 7 - 45 Units/L ELLIOTT Comment:Testing performed by : [address] [address] AST 27 10 - 45 Units/L ELLIOTT Comment:Testing performed by : [address] [address] Blood 03/24/2024 2:58 PM PUNCH PRESS SETTER 03/24/2024 4:41 PM PUNCH PRESS SETTER Virgilio Aguilera MD LAB BLOOD ORDERABLES Fin al Result ELLIOTT [address] [facility] Department [place] [address] * XR Chest Pa Lateral 2 Views (03/24/2024 2:45 PM PUNCH PRESS SETTER) Anatomical Region Laterality Modality Body, Chest N/A Computed Radiogr aphy 03/24/2024 4:23 PM PUNCH PRESS SETTER Narrative 03/24/2024 4:25 PM PUNCH PRESS SETTER EXAM DESCRIPTION: XR CHEST PA LATERAL 2 [...] Brie Beck M.D. TW: TW Report ID: [id number] Reading Location: [id number] Procedure Note Brie Beck MD - 03/24/2024 [...] Brie Beck M.D. TW: TW Report ID: [id number] Reading Location: [id number] us Virgilio Aguilera MD IMG XR PROCEDURES Final Result * RAD ONC ARIA SESSION SUMMARY (03/24/2024 8:21 AM PUNCH PRESS SETTER) Course Name Gwendolyn _2023 ARIA Course Plan Date 02/26/2024 3:30 PM ARIA Elapsed Days 7 ARIA Treatment Start Date 03/17/2024 ARIA Treatment Site RT BREAST_400 5 ARIA Dose Given To Date (cGy) 1,335 ARIA Session Dosage Given (cGy) 267 ARIA Plan ID R_BREAST ARIA Fractions Treated 5 ARIA Prescribed Dose Per Fraction (cGy) 267 ARIA Prescribed Total Dose (cGy) 4,005 ARIA 03/24/2024 8:21 AM PUNCH PRESS SETTER us Not In File Miscellaneous RADIATION ONCOLOGY ORD ERABLES Final Result ARIA * RAD ONC ARIA SESSION SUMMARY (03/23/2024 8:08 AM PUNCH PRESS SETTER) Course Name C1_R_Breas ARIA Course Plan Date 02/26/2024 3:30 PM ARIA Elapsed Days 6 ARIA Treatment Start Date 03/17/2024 ARIA Treatment Site RT BREAST_400 5 ARIA Dose Given To Date (cGy) 1,068 ARIA Session Dosage Given (cGy) 267 ARIA Plan ID R_BREAST ARIA Fractions Treated 4 ARIA Prescribed Dose Per Fraction (cGy) 267 ARIA Prescribed Total Dose (cGy) 4,005 ARIA 03/23/2024 8:08 AM PUNCH PRESS SETTER us Not In File Miscellaneous RADIATION ONCOLOGY ORD ERABLES Final Result Performing Organization Address [facility] Co de Phone Number ARIA * RAD ONC ARIA SESSION SUMMARY (03/19/2024 8:05 AM PUNCH PRESS SETTER) Course Name C1_R_Breas ARIA Course Plan Date 02/26/2024 3:30 PM ARIA Elapsed Days 2 ARIA Treatment Start Date 03/17/2024 ARIA Treatment Site RT BREAST_400 5 ARIA Dose Given To Date (cGy) 801 ARIA Session Dosage Given (cGy) 267 ARIA Plan ID R_BREAST ARIA Fractions Treated 3 ARIA Prescribed Dose Per Fraction (cGy) 267 ARIA Prescribed Total Dose (cGy) 4,005 ARIA 03/19/2024 8:05 AM PUNCH PRESS SETTER us Not In File Miscellaneous RADIATION ONCOLOGY ORD ERABLES Final Result Performing Organization Address City/[facility]/ZIP Co de Phone Number ROSALVAA * RAD ONC ARIA SESSION SUMMARY (03/18/2024 8:15 AM PUNCH PRESS SETTER) Course Name Gwendolyn ARIA Course Plan Date 02/26/2024 3:30 PM ARIA Elapsed Days 1 ARIA Treatment Start Date 03/17/2024 ARIA Treatment Site RT BREAST_400 5 ARIA Dose Given To Date (cGy) 534 ARIA Session Dosage Given (cGy) 267 ARIA Plan ID R_BREAST ARIA Fractions Treated 2 ARIA Prescribed Dose Per Fraction (cGy) 267 ARIA Prescribed Total Dose (cGy) 4,005 ARIA 03/18/2024 8:15 AM PUNCH PRESS SETTER us Not In File Miscellaneous RADIATION ONCOLOGY ORD ERABLES Final Result Performing Organization Address [facility] de Phone Number ARICharline * RAD ONC ARIA SESSION SUMMARY (03/17/2024 10:31 AM PUNCH PRESS SETTER) Course Name Dmitry_Francheska ARIA Course Plan Date [...] (cGy) 4,005 ARIA 03/17/2024 10:3 1 AM PUNCH PRESS SETTER us Not In File Miscellaneous RADIATION ONCOLOGY ORD ERABLES Final Result Performing Organization Address City/[facility] Co de Phone Number HOLLY * High Risk HPV DNA Detection with Genotyping (Molecular component) (01/27/2024 10:50 AM PUNCH PRESS SETTER) HPV HR 16 Not Detected Not Detected [facility] Comment:Testing performed by : [facility], [address] [place] [address] HPV HR 18 Not Detected Not Detected ELLIOTT SANTANA Comment:Testing performed by : [facility], [address] [place] [address] HPV HR Non 16/18 Not Detected Not [...] this test have been verified by the [facility] Molecular Infectious Disease laboratory. Correlate with separately reported cytology results, as applicable. Interpretive data last revised 22 Testing performed by: [facility], [address] [place]., [address] Endocervical 01/27/2024 10:5 0 AM PUNCH PRESS SETTER 01/27/2024 7:32 PM PUNCH PRESS SETTER Narrative ELLIOTT - 01/28/2024 4:54 AM PUNCH PRESS SETTER Clinical history and diagnosis->screening Testing type->Screening Last menstrual period (date if known)->postmenopausal us Sowmya Roque MD LAB BODY FLUIDS AND STOOL S ORDERABLES Final Result ELLIOTT SANTANA [address] [facility] Department [place] [address] [facility] * (ABNORMAL) POCT hemoglobin A1c (01/22/2024 9:06 AM PUNCH PRESS SETTER) Hemoglobin A1C, POC 6.8 4.0 - 5.6 % Blood 01/22/2024 9:06 AM PUNCH PRESS SETTER Virgilio Aguilera MD POINT OF CARE TEST ORDER SHANNON Final Result * Albumin Creatinine Ratio, Urine (01/20/2024 8:47 AM PUNCH PRESS SETTER) Creatinine, ur 73 20 - 275 mg/dL [...] a diagnostic category. Urine 01/20/2024 8:47 AM PUNCH PRESS SETTER 01/20/2024 8:47 AM PUNCH PRESS SETTER Narrative [facility] - 01/21/2024 4:37 AM PUNCH PRESS SETTER FASTING:YES FASTING: YES Virgilio Aguilera MD LAB URINE ORDERABLES Fin al Result [facility] [address] [facility] [place] [address] * (ABNORMAL) Lipid panel (01/20/2024 8:47 AM PUNCH PRESS SETTER) Cholesterol 128 <200 mg/dL [facility] [...] equation in the estimation of LDL-C. Edward SONG et al. CHERYLE. 2013;310(19): 3239-6933 (http://education.Gousto/faq/CQD374) Chol/HDL ratio 2.7 <5.0 (calc) [facility] Non-HDL, (LDL+VLDL) 80 <130 mg/dL (calc) [facility] Comment: For patients with diabetes plus 1 major ASCVD risk factor, treating to a non-HDL-C goal of <100 mg/dL (LDL-C of <70 mg/dL) is considered a therapeutic option. Blood 01/20/2024 8:47 AM PUNCH PRESS SETTER 01/20/2024 8:47 AM PUNCH PRESS SETTER Narrative [facility] - 01/21/2024 4:37 AM PUNCH PRESS SETTER FASTING:YES FASTING: YES us Virgilio Aguilera MD LAB BLOOD ORDERABLES Fin al Result [facility] [address] [place] [address] * Screening Mammogram Bilateral W Alan (11/07/2023 1:41 PM CDT) Anatomical Region Laterality Modality Breast Bilateral Mammography Narrative 11/08/2023 9:15 AM CDT Mammogram Technique: Bilateral Digital Breast Tomosynthesis, Bilateral C-view 2D Screening mammogram. Views obtained: bilateral craniocaudal and bilateral mediolateral oblique. Computer Aided Detection was performed. Mammogram Findings: The present examination has been compared to prior imaging studies performed at [facility] on 05/14/2018, 06/15/2019, 06/20/2020, 10/18/2021 [...] compared to prior imaging studies performed at [facility] on 05/14/2018, 06/15/2019,06/20/2020, 10/18/2021 and [...] Incomplete: Need additional imaging evaluation. Helena Valerio PROCUREMENT ANALYST IMG MAMMO PROCEDURES Final Result * Diabetic Eye Exam (02/07/2023) Historical Provider HEALTH MAINTENANCE Final Result * Colonoscopy (01/23/2019) Anatomical Region Laterality Modality Other 01/23/2019 Historical Provider ENDOSCOPY PROCEDURES Ekaterina l Result from Last 3 Months or Most Recently Relevant to Health Maintenance Insurance [facility] CHOICE PLUS [facility] CHOICE PLUS Care Teams Control Specialist Relationship Specialty Start Date End Date Virgilio Aguilera MD [address] [place] [address] [phone] PCP - General Family Medicine 11/11/19 Chi Lewis DO [address] [place] [address] [address] Medical Oncologist/Digital Assistant Hematology and Oncology 01/11/23 Teetee Burch, PROCUREMENT ANALYST [address] [facility] [address] [place] [address] Nurse Practitioner Medical Oncology 07/10/23 Aft, Larissa De Jesus MD PhD [address] [place] [address] Surgeon Surgical Oncology 12/26/23 Ene Telles MD [address] [facility] [address] [place] [address] Radiation Oncologist Radiation Oncology 12/26/23 Jasmine Aguirre MD PhD [address] [facility] [address] [place] [address] Radiation Oncologist Radiation Oncology 01/28/24
== END 2024-04-29 13:48 | disposition home or self-care (01) ==
LOC: ANHIMG 13:48
PROVIDERS: PCP Family Medicine; Visit Provider Nurse Practitioner Family
DX: M81.0 Age-related osteoporosis without current pathological fracture (principal)
CPT/HCPCS: 77080